=== PATIENT | male | born 1955 | race Caucasian/White ===

== ENCOUNTER 2018-05-13 06:31 | Day surgery (SDC) | payer MEDICARE, OTHER, SELFPAY ==
[2018-05-06 11:50] VITALS: BP 167/101; PULSE 55; RESP 16; TEMP 36.6; O2SAT 97; BMI 29.9
--- NOTE | 2018-05-06 12:29 | SDCEKG_ITS ---
Test Reason : Blood Pressure : / mmHG Vent. Rate : 052 BPM Atrial Rate : 052 BPM P-R Int : 210 ms QRS Dur : 112 ms QT Int : 432 ms P-R-T Axes : 043 -31 -08 degrees QTc Int : 401 ms Sinus bradycardia with 1st degree A-V block Left axis deviation Abnormal ECG Confirmed by VALENTINA KATZ, URSZULA ([id number]), photograph editor ADE BERNAL ([id number]) on 05/10/2018 10:57:42 AM Referred By: Elmo Bashir Confirmed By:URSZULA MONTGOMERY MD
[2018-05-06 12:47] LABS: Hematocrit 45.3 % (40-54); Hemoglobin 14.4 g/dl (13.0-16.5); Mean Corp Hgb Conc 31.8 g/gl (32-36); Mean Corpuscular Hgb 29.3 pg (27.0-32.0); Mean Corpuscular Volume 92.1 fL (80-94); Platelet Count 144 K/mm3 (150-450); RBC Distribution Width CV 14.7 % (11.6-14.6); RBC Distribution Width SD 49.6 fl (35.1-43.9); Red Blood Count 4.92 M/mm3 (4.6-6.2); White Blood Count 5.2 K/mm3 (4.4-11.0)
[2018-05-06 12:48] LABS: Scan Indicated on CBC? Y/N NO
[2018-05-06 13:11] LABS: Anion Gap 9 (5-15); BUN 57 mg/dL (7-18); BUN/Creat Ratio 31.7 RATIO (10-20); Calcium,Total 8.7 mg/dL (8.5-10.1); Chloride 106 mmol/L (98-107); EST Glomerular Filtration Rate 41 mL/min (>60); Est Glom Filt Rate - Afr Amer 49 mL/min (>60); Estimated Creatinine Clearance 42.81 ml/min; Glucose 136 mg/dL (74-106); Sodium Level 138 mmol/L (136-145)
[2018-05-06 13:22] LABS: Hemoglobin A1c 6.7 % (4.2-6.3)
--- NOTE | 2018-05-12 12:49 | HP.PCM_ITS ---
History and Physical Date of Admission: 05/13/18 63-year-old male who was found to have retention of urine and BPH obstruction and refluxing ureter. Last time he saw the practitioner who thought him how to do self intermittent catheterization and at this point is doing much better with emptiness bladder with a catheter. He is able to urinate but still can empty way past the catheter get several hundred ml out. Today were to do a cystoscopy. ALLERGIES: None MEDICATIONS: Atenolol-Chlorthalidone Atorvastatin Calcium Metformin Hcl PSH: None NON- PSH: Colonoscopy Pneumococcal Vaccine Admin PMH: Benign prostatic hyperplasia with lower urinary tract symptoms - 03/29/2018 Chronic kidney disease, unspecified - 03/29/2018 Other retention of urine - 03/29/2018 Frequency of micturition Nocturia Nodular prostate with lower urinary tract symptoms Other hydronephrosis Retention of urine, unspecified Unspecified urinary incontinence NON- PMH: Headache Hyperlipidemia, unspecified Personal history of diseases of the ms sys and conn tiss Secondary hypertension, unspecified Type 2 diabetes mellitus without complications Immunizations: None FAMILY HISTORY: None SOCIAL HISTORY: Marital Status: Preferred Language: Tanzanian; Ethnicity: Not Or ; Race: White Current Smoking Status: Patient does not smoke anymore. Has not smoked since 03/22/1998. Tobacco Use Assessment Completed: Used Tobacco in last 30 days? Smoking cessation counseling was provided. Does not use smokeless tobacco. Has never drank. Does not use drugs. Drinks 4+ caffeinated drinks per day. Has not had a blood transfusion. REVIEW OF SYSTEMS: Constitutional: Patient denies fever, chills, weight loss, and weight gain. Genitourinary: Patient denies frequent urination, urinary retention, get up at night to void, leakage of urine, painful urination, blood in the urine, frequent uti's, history of stones, difficulty starting stream, weak stream/scanty, and bedwetting. VITAL SIGNS: 04/11/2018 11:05 AM Weight 204 lb / 92.53 kg Height 70 in / 177.8 cm BP 134/72 mmHg BMI 29.3 kg/m? - BMI Counseling was provided. PHYSICAL EXAMINATION: Anus and Perineum: Mild external hemorrhoids. No anal stenosis. No rectal fissure, no anal fissure. No edema, no dimple, no perineal tenderness, no anal tenderness. Scrotum: No lesions. No edema. No cysts. No warts. Epididymides: Right: no spermatocele, no masses, no cysts, no tenderness, no induration, no enlargement. Left: no spermatocele, no masses, no cysts, no tenderness, no induration, no enlargement. Testes: No tenderness, no swelling, no enlargement left testes. No tenderness, no swelling, no enlargement right testes. Normal location left testes. Normal location right testes. No mass, no cyst, no varicocele, no hydrocele left testes. No mass, no cyst, no varicocele, no hydrocele right testes. Urethral Meatus: Normal size. No lesion, no wart, no discharge, no polyp. Normal location. Penis: Circumcised, no warts, no cracks. No dorsal Peyronie's plaques, no left corporal Peyronie's plaques, no right corporal Peyronie's plaques, no scarring, no warts. No balanitis, no meatal stenosis. Prostate: Prostate about 60 grams. Prostate left lobe larger. Left lobe normal consistency, right lobe normal consistency. No prostate nodule. Left lobe no tenderness, right lobe no tenderness. Seminal Vesicles: Nonpalpable. Sphincter Tone: Normal sphincter. No rectal tenderness. No rectal mass. MULTI-SYSTEM PHYSICAL EXAMINATION: Constitutional: Well-nourished. No physical deformities. Normally developed. Good grooming. Respiratory: No labored breathing, no use of accessory muscles. Lymphatic: No enlargement of neck, axillae, groin. Neurologic / Psychiatric: Oriented to time, oriented to place, oriented to person. No depression, no anxiety, no agitation. Gastrointestinal: Obese abdomen. No mass, no tenderness, no rigidity. Eyes: Normal conjunctivae. Normal eyelids. Musculoskeletal: Normal gait PAST DATA REVIEWED: Source Of History: Patient Records Review: Previous Patient Records Urine Test Review: Urinalysis X-Ray Review: C.T. Abdomen/Pelvis: Reviewed Films. Reviewed Report. PROCEDURES: Flexible Cystoscopy - 18755 Risks, benefits, and some of the potential complications of the procedure were discussed at length with the patient including infection, bleeding, voiding discomfort, urinary retention, fever, chills, sepsis, and others. All questions were answered. Informed consent was obtained. Antibiotic prophylaxis was given. Sterile technique and intraurethral analgesia were used. Meatus: Normal size. Normal location. Normal condition. Urethra: No strictures. External Sphincter: Normal. Verumontanum: Normal. Prostate: Obstructing. Moderate hyperplasia. Bladder Neck: Non-obstructing. Ureteral Orifices: Normal location. Normal size. Normal shape. Effluxed clear u rine. Bladder: Moderate trabeculation. Normal mucosa. No stones. Urinalysis - [address] Dipstick Dipstick Cont'd Specimen: Voided Blood: Neg Appearance: Clear pH: 5.0 Color: Yellow Protein: Neg Glucose: Normal Urobilinogen: Neg Bilirubin: Neg Nitrites: Neg Ketones: Neg Leukocyte Esterase: Neg ASSESSMENT: ICD-10 Details 1 : Benign prostatic hyperplasia with lower urinary tract symptoms - N40.1 2 Chronic kidney disease, unspecified - N18.9 3 Other hydronephrosis - N13.39 4 Other retention of urine - R33.8 PLAN: Document Letter(s): Created for Patient: Clinical Summary Notes: 63-year-old male on cystoscopy found to have BPH obstruction not a very large prostate but not enough to cause obstruction, recommend he continue with self intermittent catheterization, will set him up for surgery for a transurethral resection of prostate hopefully this will be enough to open up the channel and alleviate obstruction so he does not need to catheterize afterwards but also expanded the patient as possible he may need to catheterize himself a daily basis even with surgery on his prostate. Will set him up for TURP
[2018-05-13] VITALS (11 sets, daily range): BP systolic 103–137; BP diastolic 60–87; PULSE 57–84; RESP 16–18; TEMP 36.4–37.1; O2SAT 92–98; BMI 29.9
--- NOTE | 2018-05-13 | IMM_PTH ---
PATIENT: GEORGIE LYNN LOC: [facility] [place] U#:[id number] AGE/SX: 63/M ROOM: RE05/13/[address]: Dr. Elmo Bashir MD : 1955 BED: DIS: 05/14/2018 SPEC #: [id number] RECD: 05/16/18 14:21 STATUS: ZOYA REQ #: [id number] YVETTE: 05/13/18 00:[address]: Elmo Bashir DEPT: IMMUNOHISTOCHEMISTRY RECD BY: Dora Mendes ENTERED: 05/16/18 14:22 SP TYPE: IMMUNO OTHR DR: Dr. Luis Daniel Alamo, DO Tissues: Prostate, NOS Procedures: P40 (add) 34BE12 (initial) PHYSICIAN & INSTITUTION [place] [id number] SPECIMEN INFORMATION: Tissue Source: Prostate chips Clinical Info: BPH, lower urinary tract symptoms Specimen Number: [id number] #3 CPT code: 30642, 19928 METHODOLOGY: Deparaffinized sections of prefer/formalin-fixed tissue or PAP/DQ stained slides are incubated with monoclonal/polyclonal antibodies/oligonucleotide probes. Localization is made via biotin free immunoperoxidase method. Appropriate controls are performed and reacted as expected. Results on target cell population are indicated in the following table: RESULTS: ANTIBODY / CLONE RESULT Block 3 P40 (BC28) negative 34BE12 (34BE12) negative These tests were developed and their performance characteristics determined by [facility]. They may not have been cleared or approved by the U.S. Food and Drug Administration. The FDA has determined that such clearance or approval is not necessary. INTERPRETATION: Prostate chips, TUR: Adenocarcinoma. NAVA:arnol 05/17/18
[2018-05-13] MEDS: Cefazolin 2 GM in 0.9% Normal Saline 100 ML IV (07:00)
[2018-05-13 07:10] LABS: Bedside Glucose 138 mg/dL (70-110)
--- NOTE | 2018-05-13 08:22 | DCINST_ITS ---
Discharge Diet: Light diet - advance as tolerated Discharge Activity: Return to Normal Activity, May not drive while taking narcotic pain medications., May Shower Call your doctor if your incision/area has: Continuous Slow Oozing, Sudden Increased Bleeding, Increased Pain/ Swelling, Increased Redness, Foul Smelling Discharge, Swelling at the incision site Call your doctor if you observe: Fever of 101 or Higher, Inability to urinate, Inability to have a bowel movement Suture Line Care: Avoid Pulling/Pushing, Avoid Pinching/Bending Instructions: Transurethral Resection of the Prostate (TURP): Home Recovery Allergies/Adverse Reactions: Allergies morphine Adverse Reaction (Verified 05/13/18 06:58) confusion Medications to take at Discharge Atenolol/Chlorthalidone [Atenolol-Chlorthalidone 50-25] 1 each PO DAILY 05/06/18 Ibuprofen [Motrin] 800 mg PO TID PRN 05/06/18 Acetaminophen [Tylenol Extra Strength] 500 mg PO Q4H PRN PRN 7 Days #20 tablet 05/13/18 Ciprofloxacin [Cipro] 500 mg PO BID #14 tablet 05/13/18 Ibuprofen 600 mg PO Q6H PRN PRN #20 tablet 05/13/18 The following prescriptions were given: Acetaminophen [Tylenol Extra Strength] 500 mg PO Q4H PRN PRN 7 Days #20 tablet PRN Reason: Pain Ibuprofen 600 mg PO Q6H PRN PRN #20 tablet PRN Reason: Pain Ciprofloxacin [Cipro] 500 mg PO BID #14 tablet Primary Care Physician: Luis Daniel Alamo DO [Primary Care Provider] - Test Results: Test results from this visit will be discussed in further detail at your follow- up appointment, if applicable. Please Follow Up With: Elmo Bashir MD When: in 2 weeks, please call to make an appointment. Proposed Discharge Date: 05/14/18
--- NOTE | 2018-05-13 08:50 | PROS_PTH ---
PATIENT: GEORGIE LYNN LOC: [facility] [place] U#:[id number] AGE/SX: 63/M ROOM: RE05/13/[address]: Dr. Elmo Bashir MD : 1955 BED: DIS: 05/14/2018 SPEC #: [id number] RECD: 05/13/18 13:59 STATUS: ZOYA REFrancisco #: [id number] YVETTE: 05/13/18 08:[address]: Elmo Bashir DEPT: SURGICAL PATHOLOGY RECD BY: Cirilo Trinh ENTERED: 05/13/18 14:47 SP TYPE: TURP OTHR DR: Dr. Luis Daniel Alamo, DO Tissues: Prostate, NOS Procedures: Surgery Specimen Level V HEADER OPERATION: Cysto, TUR, prostate, Olympus PRE-OP DIAGNOSIS: Benign prostatic hypertrophy with lower urinary tract symptoms TISSUE SUBMITTED: Prostate chips MICROSCOPIC DIAGNOSIS Prostate chips, TUR: Prostatic adenocarcinoma. See cancer summary below. PROSTATE CANCER (TUR) SUMMARY: Procedure - transurethral prostatic resection Specimen weight - 16 gm Histologic type - adenocarcinoma (acinar, not otherwise specified) Histologic grade (Antione Pattern): Primary (predominant) pattern - grade 3 Secondary (worst remaining) pattern - grade 3 Total Antione score - 6 Tumor Quantitation (TUR specimens): Proportion (%) of prostatic tissue involved by tumor - ~15% Number of positive chips - ~22 Total number of chips - ~119 Periprostatic fat invasion - not applicable Seminal vesicle invasion - not applicable Lymph-Vascular invasion - not identified Perineural invasion - not identified Additional pathologic findings - benign prostatic hyperplasia, glandular and stromal type. - Focal chronic inflammation. - Multiple prostatic stones (gross only). The above summary is in compliance with [employer] [place] [employer] (CAP) Cancer Protocols Checklist and [place] Joint Committee on Cancer (AJCC), Staging Manual, 8th Ed. SJ:rg 05/16/18 COMMENT Immunohistochemistry ([id number]) supports the above diagnosis. MICROSCOPIC DESCRIPTION Slides are reviewed. GROSS DESCRIPTION Received is one container labeled with the patient's name and designated prostate tissue. The specimen consists of multiple irregular fragments of pink-clinton, rubbery, soft tissue that in aggregate weigh 16 gm and measure in aggregate 5 x 5 x 2 cm. A few fragments of stones are also noted. The entire specimen is submitted in 11 cassettes. The stones are for gross identification only. / SJ:rg 05/13/18 TC:0 CPT: 17213
--- NOTE | 2018-05-13 09:28 | OP.PCM_ITS ---
Report of Operation Date of Procedure: 05/13/18 Pre-Operative Diagnosis: BPH with obstruction distended and atonic bladder Post-Operative Diagnosis: Same Surgery/Procedure Performed:: Transurethral resection of the prostate Description of Surgical Findings:: 63-year-old male who was found to have an obstructive but small prostate and a distended bladder and atonic bladder he is urinating some but also using the catheter empty his bladder today we will proceed with a transurethral resection of the prostate to alleviate the obstruction is possible he may be able to alleviate his bladder without a catheter after the surgery but also possible he may need to still use a catheter long-term this is explained to the patient is agreeable with proceeding with the surgery with the benefits of been able to urinate on his own without needing a catheter but also the risk of bleeding infection risk of anesthesia and risk of failure of the surgery to alleviate his obstruction. 63-year-old male taken back to the operating room the smooth induction of general anesthesia he was placed in dorsolithotomy position, penis and testicles are prepped and draped in usual sterile fashion, I went to the bladder with a 24 [place] noncontinuous flow Olympus resectoscope using the bipolar resection. Inspected the bladder and the prostate the bladder was fairly distended trabeculated atonic looking bladder, large floppy bag. The prostate was small and obstructive with a lot of BPH tissue had bilateral hypertrophy is protruding into the bladder I started by resecting at the 6 o'clock position work my way up to the 12 o'clock position in the right side resected on the right tissue in the right lobe of the prostate and then resect the left lobe of the prostate and then worked my way back to the verumontanum this was identified not injured and then I resected all the apical tissue very carefully had a fair amount of tissue resected as a wide open channel from the verumontanum into the bladder neck had a good flow test at the end and then Ellik out all the chips obtain hemostasis and then put a catheter into the bladder on continuous bladder irrigation appear to be a complete resection. The sphincter was intact at the end of the resection of pullback behind the sphincter could still see coapted together and had good control of bleeding put a catheter in with three-way irrigation patient was taken back to PACU good condition. Type of Anesthesia:: General Drains: 3 way 22fr - Admit VTE Documentation VTE Present on Admission: No VTE Mechan Device Prophylaxis: SCD's
[2018-05-13 09:46] LABS: Bedside Glucose 142 mg/dL (70-110)
[2018-05-13] MEDS: 0.9% Normal Saline 1,000 ML 125 ML IV ×2 (11:18→19:23)
[2018-05-13] MEDS: Docusate Sodium 100 MG Capsule PO ×2 (11:41→21:31)
[2018-05-13] MEDS: Pantoprazole Sodium 40 MG Tablet PO (11:41)
[2018-05-13] MEDS: Ciprofloxacin 500 MG Tablet PO ×2 (11:41→21:31)
[2018-05-13] MEDS: Ibuprofen 600 MG Tablet PO (13:14)
[2018-05-13] MEDS: oxyCODONE 5 MG Tablet PO ×2 (13:14→21:31)
[2018-05-13 16:30] LABS: Bedside Glucose 218 mg/dL (70-110)
[2018-05-13] MEDS: Zolpidem Tartrate 5 MG Tablet PO (23:57)
[2018-05-14 02:41] VITALS: BP 118/68; PULSE 72; RESP 18; TEMP 36.6; O2SAT 95
[2018-05-14] MEDS: 0.9% Normal Saline 1,000 ML 125 ML IV (02:44)
[2018-05-14 07:17] LABS: Hematocrit 38.9 % (40-54); Hemoglobin 12.4 g/dl (13.0-16.5); Mean Corp Hgb Conc 31.9 g/gl (32-36); Mean Corpuscular Hgb 29.7 pg (27.0-32.0); Mean Corpuscular Volume 93.3 fL (80-94); Mean Platelet Vol. 10.8 fl (6.2-12.0); Platelet Count 124 K/mm3 (150-450); RBC Distribution Width CV 14.4 % (11.6-14.6); RBC Distribution Width SD 47.2 fl (35.1-43.9); Red Blood Count 4.17 M/mm3 (4.6-6.2); White Blood Count 7.3 K/mm3 (4.4-11.0)
[2018-05-14 07:20] LABS: Scan Indicated on CBC? Y/N NO
[2018-05-14 07:46] LABS: Bedside Glucose 118 mg/dL (70-110)
[2018-05-14 07:48] LABS: Anion Gap 11 (5-15); BUN 35 mg/dL (7-18); BUN/Creat Ratio 22.7 RATIO (10-20); Calcium,Total 7.6 mg/dL (8.5-10.1); Chloride 110 mmol/L (98-107); Creatinine, Serum 1.54 mg/dL (0.70-1.30); EST Glomerular Filtration Rate 49 mL/min (>60); Est Glom Filt Rate - Afr Amer 59 mL/min (>60); Estimated Creatinine Clearance 50.04 ml/min; Glucose 106 mg/dL (74-106); Potassium 3.4 mmol/L (3.5-5.1); Sodium Level 142 mmol/L (136-145)
[2018-05-14 08:45] VITALS: BP 126/69; PULSE 65; RESP 16; TEMP 36.6; O2SAT 95
[2018-05-14] MEDS: Docusate Sodium 100 MG Capsule PO (08:53)
[2018-05-14] MEDS: Pantoprazole Sodium 40 MG Tablet PO (08:54)
[2018-05-14] MEDS: Ciprofloxacin 500 MG Tablet PO (08:54)
[2018-05-14] MEDS: oxyCODONE 5 MG Tablet PO (08:56)
--- NOTE | 2018-05-14 09:04 | PCM.PN.BLA ---
Progress Note 63-year-old male status post TURP the urine is nice and clear nurses will get the catheter out he is able to urinate and go home.
--- NOTE | 2018-05-14 10:29 | NURSING ---
PER PATIENT HE URINATED 275ML AND EMPTIED CONTAINER HIMSELF. I ASKED HIM TO PLEASE LET ME KNOW NEXT TIME SO I CAN SEE THE URINE PRIOR TO IT BEING DUMPED
== END 2018-05-14 11:23 | disposition home or self-care (01) ==
LOC: SDC 06:32 → AC 06:33 → MS3 08:54
PROVIDERS: Anesthesiology; Family Provider Family Medicine; PCP Family Medicine; Referring Provider Urology; Visit Provider Urology
PROC: (CPT 52630; principal; 2018-05-13 08:40)
DX: C61 Malignant neoplasm of prostate (principal); R33.8 Other retention of urine; N31.2 Flaccid neuropathic bladder, not elsewhere classified; E78.5 Hyperlipidemia, unspecified; I12.9 Hypertensive chronic kidney disease with stage 1 through stage 4 chronic kidney disease, or unspecified chronic kidney disease; E11.22 Type 2 diabetes mellitus with diabetic chronic kidney disease; N18.9 Chronic kidney disease, unspecified; Z87.891 Personal history of nicotine dependence; Z79.84 Long term (current) use of oral hypoglycemic drugs; Z79.899 Other long term (current) drug therapy; Z79.82 Long term (current) use of aspirin
CPT/HCPCS: 52630; 80048; 82962; 83036; 85027; 88305; 88307; 88341; 88342; 93005; J7030; J7120; J2405

== ENCOUNTER → 2018-08-31 | Outpatient (CLI) | payer MEDICARE, OTHER, SELFPAY ==
[2018-05-13 06:56] VITALS: BMI 29.9
[2018-08-31 14:38] LABS: PSA,Total- Diagnostic 1.14 ng/mL (0.0-4.0)
== END | disposition home or self-care (01) ==
LOC: MTLAB 12:28
PROVIDERS: Family Provider Family Medicine; PCP Family Medicine; Referring Provider Urology; Visit Provider Urology
DX: C61 Malignant neoplasm of prostate (principal)
CPT/HCPCS: 36415; 84153

== ENCOUNTER → 2019-03-06 16:40 | Outpatient (CLI) | payer MEDICARE, OTHER, SELFPAY ==
[2018-05-13 06:56] VITALS: BMI 29.9
[2019-03-06 17:54] LABS: PSA,Total- Diagnostic 0.77 ng/mL (0.0-4.0)
== END ==
PROVIDERS: Family Provider Family Medicine; PCP Family Medicine; Referring Provider Urology; Visit Provider Urology
DX: C61 Malignant neoplasm of prostate (principal)
CPT/HCPCS: 36415; 84153

== ENCOUNTER → 2019-09-04 10:20 | Outpatient (CLI) | payer MEDICARE, SELFPAY ==
[2018-05-13 06:56] VITALS: BMI 29.9
[2019-09-04 11:30] LABS: PSA,Total- Diagnostic 1.27 ng/mL (0.0-4.0)
== END ==
PROVIDERS: PCP Family Medicine; Referring Provider Urology; Visit Provider Urology
DX: C61 Malignant neoplasm of prostate (principal)
CPT/HCPCS: 36415; 84153

== ENCOUNTER 2020-03-30 16:14 | Emergency (ER) | payer MEDICARE, SELFPAY ==
[2018-05-13 06:56] VITALS: BMI 29.9
[2020-03-30 16:15] VITALS: BP 156/122; PULSE 77; RESP 16; TEMP 36.8; O2SAT 94; BMI 27.3
[2020-03-30] MEDS: 0.9% Normal Saline 1,000 ML 1000 ML IV (17:25)
[2020-03-30] MEDS: HYDROmorphone 1 MG/ML Syringe 0.5 MG IV (17:26)
[2020-03-30] MEDS: Ondansetron 4 MG/2 ML Vial IV (17:27)
[2020-03-30 17:30] LABS: Absolute Lymphocyte Count 0.83 X10^3/uL (0.83-4.51); Absolute Neutrophil Count 4.3 X10^3/uL (2.0-7.7); Basophil# 0.04 X10^3/uL; Basophil% 0.7 % (0-1); Eosinophil# 0.13 X10^3/uL; Eosinophils% 2.2 % (0-5); Hematocrit 48.4 % (40-54); Hemoglobin 15.8 g/dL (13.0-16.5); Lymphocyte # 0.83 X10^3/ul (4.0); Mean Corp Hgb Conc 32.6 g/dL (32-36); Mean Corpuscular Hgb 30.3 pg (27.0-32.0); Mean Corpuscular Volume 92.7 fL (80-94); Mean Platelet Vol. 10.1 fl (6.2-12.0); Monocyte% 10.1 % (0-10); NRBC Flagged by Analyzer 0 % (0-5); Neutrophil # 4.31 X10^3/uL (2.7-7.7); Neutrophil % 72.7 % (47-70); Platelet Count 184 K/mm3 (150-450); RBC Distribution Width CV 14.6 % (11.6-14.6); RBC Distribution Width SD 49.5 fl (35.1-43.9); Red Blood Count 5.22 M/mm3 (4.6-6.2); White Blood Count 5.9 K/mm3 (4.4-11.0)
--- NOTE | 2020-03-30 17:42 | CT_ITS ---
STUDY: CT BRAIN WITHOUT CONTRAST REASON FOR EXAM: Male, 65 years old. Headache for 3 days, shingles nosebleed RADIATION DOSAGE (If Supplied By Facility): CTDIvol = ( 44.99 ) mGy, DLP = ( 796.11 ) mGycm TECHNIQUE: Transaxial CT imaging of the brain was performed without administration of intravenous contrast material. Individualized dose optimization techniques were used for this CT. COMPARISON: No relevant priors. FINDINGS: There is no acute intracranial hemorrhage, mass effect, midline shift, extra parenchymal fluid collections or hydrocephalus. There is right occipital periventricular white matter hypodensity, likely chronic ischemic white matter change. 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 The skull is intact. CT/Brain/Head without Contrast IMPRESSION: 1. No acute findings. 2. Right occipital white matter and left cerebellar remote ischemia. Electronically Signed: Justino Wu, at 17:57 EST Tel , Service support ,
[2020-03-30 17:50] LABS: Anion Gap 8 (5-15); BUN 53 mg/dL (7-18); BUN/Creat Ratio 27.2 RATIO (10-20); Calcium,Total 8.9 mg/dL (8.5-10.1); Chloride 103 mmol/L (98-107); Creatinine, Serum 1.95 mg/dL (0.70-1.30); EST Glomerular Filtration Rate 37 mL/min (>60); Est Glom Filt Rate - Afr Amer 45 mL/min (>60); Estimated Creatinine Clearance 39.69 ml/min; Glucose 152 mg/dL (74-106); Potassium 4.1 mmol/L (3.5-5.1); Sodium Level 137 mmol/L (136-145)
[2020-03-30 18:13] VITALS: BP 151/82; PULSE 68; RESP 17; TEMP 36.9; O2SAT 95
--- NOTE | 2020-03-30 18:49 | ED.DCSUM_ITS ---
- ER Visit Summary Date of Service: 03/30/20 Chief Complaint: Headache and shingles History of Present Illness: The patient is a [address] Saad Alamo. He reports that he was diagnosed with shingles on March 19. He was placed on famciclovir for 1 week. States that he was on Neurontin for pain but quit this 2 days ago because he developed headaches. Patient reports that he has a headache, but when asked the location of this he points to his neck where his shingles are. He denies any pain to the back of his head, top of his head, or forehead. He describes it as a sharp pain is 10 on 10 at worst and 7-10 currently. Is worsened by nothing relieved by nothing. Patient reports that he has had nosebleeds that began 3 days ago. Is from the right side. Is happening a couple of times per day. It resolves with 2 Kleenex. Patient complains of chills and nausea. He denies any other complaints. Physical Examination: Vitals: Stable. Afebrile. General: Well-nourished and well-developed. Head: Normocephalic atraumatic. Neck: Supple, no lymphadenopathy. No JVD. Nontender. Cardiovascular: Regular rate and rhythm. No murmurs. Respiratory: No respiratory distress. Clear to auscultation bilaterally. Abdominal: Soft, nontender, nondistended, normal bowel sounds. No guarding, rebound, or peritoneal signs. Back: Nontender. Extremities: Nontender, no edema. Skin: Vesicular rash in a C3-C4 distribution on the left. There is no evidence of a bacterial infection. Neurologic: Alert and oriented ?3. Cranial nerves II through XII are intact. Normal strength and sensation. Psych: Normal affect. Test Results: CBC is remarkable segmented for 73, sats 14, monocytes 10. Chem-7 shows a glucose 152, BUN of 53, creatinine 1.95. Clinical Impression(s) from Imaging Studies Brain CT 03/30/20 17:42 IMPRESSION: 1. No acute findings. 2. Right occipital white matter and left cerebellar remote ischemia. Electronically Signed: Justino Wu, at 17:57 EST Tel , Service support , Emergency Department Course and Treatment: Initially when patient complained of shingles and a headache we discussed the possibility of a lumbar puncture. However, after further clarifying with the patient this is pain just in his skin. He does not feel like there is any pain that is inside his skull. The patient was given a dose of Zofran and half a milligram of Dilaudid IV. He was also given a dose of acyclovir IV. Treatment Plan: The patient was discussed with Dr. Oshea of infectious diseases. Given the fact that his rash is still vesicular and he is having new lesions pop up he will be placed on Valtrex 1 g 3 times daily for the next 7 days. He will not be placed on steroids. He will be given a prescription for Percocet for pain. Follow-up his primary care physician 1 week if not improving. Return to the emergency department for any worsening symptoms. Disposition: To home in improved and stable condition. Impression: 1. Herpes zoster C3/C4 distribution on the left. 2. Chronic renal insufficiency. This note was generated with [employer] dictation software. It may contain incorrect words, spelling, and punctuation that were not noted in review of the chart prior to signing ED Disposition - Plan for ED Patient: Instructions: ED Shingles (Herpes Zoster) Prescriptions: Docusate Sodium [Colace] 100 mg PO DAILY #20 capsule Oxycodone HCl/Acetaminophen [Percocet 5/325] 1 tablet PO Q6H PRN PRN 5 Days #20 tablet PRN Reason: Pain Score 6-10 Valacyclovir HCl [Valacyclovir] 1,000 mg PO TID #21 tablet Referrals: Saad Alamo MD [Primary Care Provider] - 1 Week if not improving
[2020-03-30 19:19] VITALS: BP 108/66; PULSE 82; RESP 20; O2SAT 94
== END 2020-03-30 19:21 | disposition home or self-care (01) ==
LOC: ED 16:42
PROVIDERS: Emergency Provider Emergency Medicine; PCP Family Medicine
DX: B02.9 Zoster without complications (principal); N18.9 Chronic kidney disease, unspecified
CPT/HCPCS: 70450; 80048; 85025; 96365; 96375; 99283; J7030; A4216; J2405

== ENCOUNTER → 2020-09-02 10:24 | Outpatient (CLI) | payer MEDICARE, SELFPAY ==
[2020-09-02 11:14] LABS: PSA,Total- Diagnostic 1.37 ng/mL (0.0-4.0)
== END ==
PROVIDERS: PCP Family Medicine; Referring Provider Urology; Visit Provider Urology
DX: C61 Malignant neoplasm of prostate (principal)
CPT/HCPCS: 36415; 84153

== ENCOUNTER → 2021-01-14 10:09 | Outpatient (CLI) | payer MEDICARE, SELFPAY | PROVIDERS: PCP Family Medicine; Referring Provider Anesthesiology Pain Medicine; Visit Provider Anesthesiology Pain Medicine | DX: F11.21 Opioid dependence, in remission (principal) ==

== ENCOUNTER 2021-04-17 10:13 | Observation (INO) | payer MEDICARE, SELFPAY ==
--- NOTE | 2021-03-13 13:10 | EKG12_ITS ---
Test Reason : PRE-OP Blood Pressure : / mmHG Vent. Rate : 072 BPM Atrial Rate : 072 BPM P-R Int : 192 ms QRS Dur : 110 ms QT Int : 398 ms P-R-T Axes : 054 -23 024 degrees QTc Int : 435 ms Normal sinus rhythm Normal ECG Confirmed by DAYANARA KATZ, YON ([id number]), editor managing newspaper MELISSA HULL ([id number]) on 03/17/2021 10:19:25 AM Referred By: Hal Pearson Confirmed By:YON NICHOLE MD
--- NOTE | 2021-03-13 13:18 | RAD_ITS ---
STUDY: X-RAY CHEST REASON FOR EXAM: Male, 65 years old. PREOP TECHNIQUE: PA and lateral views of the chest. COMPARISON: None. FINDINGS: The lungs are clear and expanded. There is no demonstrated pleural abnormality. Normal size heart. Normal mediastinum and jay. Normal visualized pulmonary arteries. Normal visualized aortic arch and descending thoracic aorta. Normal visualized thoracic spine. Normal visualized ribs, clavicles, and shoulders. There is no demonstrated abnormality of the visualized soft tissue structures of the upper abdomen. RAD/Chest PA and Lateral IMPRESSION: Normal x-ray examination of the chest. Electronically Signed: Bernard Zepeda MD at 10:25 EST Tel , Service support ,
[2021-03-13 15:07] LABS: Absolute Lymphocyte Count 1.45 X10^3/uL (0.83-4.51); Absolute Neutrophil Count 4.7 X10^3/uL (2.0-7.7); Basophil# 0.06 X10^3/uL; Basophil% 0.8 % (0-1); Eosinophil# 0.59 X10^3/uL; Eosinophils% 8.1 % (0-5); Hematocrit 43.2 % (40-54); Lymphocyte # 1.45 X10^3/ul (0.83-4.51); Lymphocyte % 19.9 % (19-41); Mean Corp Hgb Conc 32.4 g/dL (32-36); Mean Corpuscular Volume 95.8 fL (80-94); Mean Platelet Vol. 9.9 fl (6.2-12.0); Monocyte# 0.49 X10^3/uL; Monocyte% 6.7 % (0-10); NRBC Flagged by Analyzer 0 % (0-5); Neutrophil # 4.66 X10^3/uL (2.7-7.7); Neutrophil % 64.2 % (47-70); Platelet Count 220 K/mm3 (150-450); RBC Distribution Width CV 12.6 % (11.6-14.6); RBC Distribution Width SD 45.1 fl (35.1-43.9); Red Blood Count 4.51 M/mm3 (4.6-6.2); White Blood Count 7.3 K/mm3 (4.4-11.0)
[2021-03-13 15:18] LABS: Prothrombin Time (Protime)PT. 12.9 SECONDS (11.7-14.9)
[2021-03-13 15:19] LABS: Partial Thromboplast Time 28.8 Seconds (24.1-36.2)
[2021-03-13 15:32] LABS: Anion Gap 7 (5-15); BUN 46 mg/dL (7-18); BUN/Creat Ratio 25.1 RATIO (10-20); Calcium,Total 9.3 mg/dL (8.5-10.1); Chloride 106 mmol/L (98-107); Creatinine, Serum 1.83 mg/dL (0.70-1.30); EST Glomerular Filtration Rate 39 mL/min (>60); Est Glom Filt Rate - Afr Amer 48 mL/min (>60); Glucose 204 mg/dL (74-106); Potassium 4.3 mmol/L (3.5-5.1); Sodium Level 139 mmol/L (136-145)
[2021-03-13 15:46] LABS: Hemoglobin A1c 7.4 % (3.8-5.6)
[2021-04-17] VITALS (13 sets, daily range): BP systolic 111–129; BP diastolic 67–94; PULSE 67–84; RESP 16–18; TEMP 36.3–36.8; O2SAT 93–98; BMI 31.8
[2021-04-17] MEDS: Lactated Ringers 1,000 ML 15 ML IV ×3 (09:23→14:11)
[2021-04-17 09:36] LABS: Bedside Glucose 171 mg/dL (70-110)
--- NOTE | 2021-04-17 10:16 | PCM.OPRPT ---
Problems Associated Problem List Diagnoses (1) Lumbar stenosis: Report of Operation Date of Procedure: 04/17/21 Pre-Operative Diagnosis: 1. Lumbar stenosis, spondylosis 2. Chronic back pain Post-Operative Diagnosis: 1. Lumbar stenosis, spondylosis 2. Chronic back pain Surgery/Procedure Performed:: 1. T9-10 partial bilateral laminectomies 2. Dorsal column stimulator paddle lead placement 3. Subcutaneous placement of dorsal column stimulator generator 4. 1 hour of complex programming postoperatively Description of Surgical Findings:: The patient is a 66-year-old male with intractable back and leg pain. He has failed to respond to nonoperative treatment including medications, physical therapy and injections. He opted for operative intervention understanding the risks to include but not limited to infection, bleeding, damage to nerves arteries and veins, possibility of spinal fluid leak, hardware failure, continued pain, need for further surgery, deep vein thrombosis, pulmonary embolism, risk of stroke, heart attack or . The patient was identified in the preoperative holding area. There he received preoperative IV antibiotics Ancef and was then transferred to the operative suite. Once in the operative suite after general endotracheal anesthesia was established the patient was transferred to the [place] operating table in the prone position. All bony prominences were padded accordingly. The thoracolumbar spine was prepped and draped in a standard surgical fashion. Incision was made over the thoracolumbar spine centered over the T9-10 interlaminar space and taken down to the thoracic fascia. The fascia was then divided and subperiosteal dissection was taken down to the level of the bilateral T9-10 facet joints. Deep retractors were placed. Partial bilateral laminectomies were performed at the T9-10 interspace. At this point a paddle lead was placed spanning from the level of T8 inferiorly. It was then anchored to the fascia using standard anchors with silk suture. A 3 cm transverse incision was made over the right sacroiliac region for the battery/generator. Wires for the stimulator were then passed subcutaneously with a passing device to the battery pocket and connected to a new generator/battery. Both incisions were then thoroughly irrigated. The battery was placed inside of the pocket incision. Both incisions were then closed with #1 Vicryl for fascia, 2-0 Vicryl for subcutaneous and 2-0 nylon for skin. Sterile dressings were applied with 4 x 4's ABD and tape. Sponge instrument needle counts were correct at the end of the case. Neuro monitoring was maintained at baseline during the entire duration of the case. The patient was extubated and taken to the PACU without incident. Then 1 hour was spent with complex programming and the patient recovered. Surgeon: Hal Pearson Type of Anesthesia: General Grafts/Implants Used: [employer] Complications None Admit VTE Documentation VTE Present on Admission: No
--- NOTE | 2021-04-17 10:17 | PCM.PN.ORT ---
Subjective Subjective The patient was seen and examined postoperatively in the PACU. He is resting comfortably. His only complaint is some pain in the left costal region which is currently being worked up by anesthesia. He has no complaints including numbness tingling or weakness Objective Data Objective Data Vital Signs: Vital Signs Temp Pulse Resp BP Pulse Ox 98.1 F 68 16 123/83 H 98 04/17/21 09:16 04/17/21 09:16 04/17/21 09:16 04/17/21 09:16 04/17/21 09:16 Oxygen Delivery Method Room Air Weight: 209 lb 7.026 oz Body Mass Index (BMI) 31.8 Lab / Micro Data Result Diagrams: 03/13/21 13:04 03/13/21 13:04 Labs: Laboratory Results - last 24 hr 04/17/21 09:09: POC Glucose 171 H Physical Exam Const alert, oriented x3 and no apparent distress General Appearance: cooperative and comfortable HEENT head/scalp atraumatic Eyes EOMs intact bilaterally and conjunctivae normal Neck full ROM General: normal visual inspection Chest inspection of chest normal Resp normal respiratory effort and normal air movement Cardio regular rate, regular rhythm and peripheral pulses 2+ throughout Peripheral Pulses: pulses 2+ throughout GI soft to palpation, non-tender and non-distended Back/Spine Back/Spine Narrative: Dressings clean dry and intact Cervical Spine: cervical ROM normal Thoracic Spine / Upper Back: normal to inspection Lumbar Spine / Lower Back: normal to inspection Extremity normal to inspection, full ROM, normal capillary refill, no clubbing, cyanosis or edema and no calf tenderness Peripheral Pulses: Yes pulses 2+ throughout Skin no rashes or lesions noted General Skin Exam: no breakdown Neuro oriented x3, CN's II-XII intact bilaterally, moves all extremities, no focal motor deficits, no sensory deficits noted and deep tendon reflexes 2+ bilaterally Motor Exam: strength 5/5 throughout and muscle tone normal throughout Assessment & Plan Assessment/Plan (1) Lumbar stenosis: PLAN: Okay to admit to floor See orders Discharge planning, likely home tomorrow
--- NOTE | 2021-04-17 10:17 | DS.PCM_ITS ---
Providers Date of Admission: 04/17/21 Primary Care Physician: Dr. Saad Alamo MD Reason For Visit: LAMINECTOMY THORACIC Medications at Discharge Home Medications atenolol-chlorthalidone 1 ea PO DAILY 05/06/18 metformin 500 mg PO BID 03/13/21 oxycodone 5 mg PO BID PRN 03/13/21 oxycodone 5 mg PO Q6H 7 Days #28 tablet 04/17/21 Hospital Course Operations - (T9-10 laminectomy, implantation of permanent spinal cord stimulator lead and generator) Summary of Care Provided Minutes Spent on Discharge: 15 Hospital Course: The patient is a 66-year-old male who underwent implantation of a permanent spinal cord stimulator on 04/17/2021. He was subsequently admitted. The hospitalist was consulted for medical management. He progressed well. His pain was well controlled and he was mobilizing well. No significant medical issues were reported. He was subsequently discharged home on 04/18/2021 to follow-up with Dr. Pearson in 3 weeks. Physical Exam Narrative seen and examined. mobilizing independently. only complaint is LUQ discomfort. no back pain. no paresthesias or weakness. no nausea, vomiting, fever, chills. Const alert, oriented x3 and no apparent distress General Appearance: cooperative and comfortable HEENT head/scalp atraumatic Eyes EOMs intact bilaterally and conjunctivae normal Neck full ROM General: normal visual inspection Chest inspection of chest normal Resp normal respiratory effort and normal air movement Cardio regular rate and regular rhythm Peripheral Pulses: pulses 2+ throughout GI soft to palpation, non-tender and non-distended Back/Spine Back/Spine Narrative: Dressings clean dry and intact Cervical Spine: cervical ROM normal Thoracic Spine / Upper Back: normal to inspection Lumbar Spine / Lower Back: normal to inspection Extremity normal to inspection, full ROM, normal capillary refill, no clubbing, cyanosis or edema and no calf tenderness Peripheral Pulses: Yes pulses 2+ throughout Skin no rashes or lesions noted General Skin Exam: no breakdown Neuro oriented x3, CN's II-XII intact bilaterally, moves all extremities, no focal motor deficits, no sensory deficits noted and deep tendon reflexes 2+ bilaterally Motor Exam: strength 5/5 throughout and muscle tone normal throughout Weight / BMI Weight Weight: 209 lb 7.026 oz Body Mass Index (BMI) 31.8 ABG / Lab / Microbiology Data Result Diagrams: 04/18/21 06:00 12/23/21 13:04 Laboratory: Laboratory Results - last 24 hr 04/17/21 09:09: POC Glucose 171 H D/C Instructions Discharge Diet: No restrictions Discharge Activity: - (See attached discharge instructions) Lifting Restricted to (Lbs): 5 Call your doctor if your incision/area has: Continuous Slow Oozing, Sudden Increased Bleeding, Increased Pain/ Swelling, Increased Redness, Foul Smelling Discharge and Swelling at the incision site Call your doctor if you observe: Fever of 101 or Higher, Coldness, Increased Pain, Numbness or Tingling, Change in Color, Inability to urinate, Inability to have a bowel movement, Using more than 1 pad per hour, Shortness of breath, Dizziness, Fainting spells, Swelling in the ankles, Chest pain, Prolonged hiccupping, Increased palpitations (irregular heartbeat), Calf discomfort and Uncontrolled pain Change Dressing in: Daily Cleanse incision/area with: Do not get Incision Wet and Keep Dressing Clean & Dry Additional Dressing/Incision Instructions: Daily dry dressing changes with iodine to incision Please Follow Up With: Hal Pearson DO When: 3 weeks Meaningful Use Info Meaningful Use Diagnoses (Choose all that apply): None applicable Discharge Plan Admission Admit Date/Time: 04/17/21 10:13 Attending Provider: Hal Pearson Primary Care Provider: Saad Alamo Consulting Providers: Silke Snider Instructions Additional Instructions / Restrictions: 1. During your procedure, you received sedation through your IV. Please follow these instructions for the next 24 hours: Do not drive a motor vehicle, do not d rink any alcoholic beverages, and do not sign any legal documents or make personal or business decisions. A responsible adult should stay with you at least 6 hours after the procedure. 2. Keep your surgical site/incision clean and the dressing dry and intact. You may sponge bathe, but no showering or sitting in a bathtub during your trial or for one week after the permanent implant. You may use an ice pack at the surgical site to reduce any swelling or discomfort. 3. Monitor the incision site for any signs or symptoms of infection. Watch for redness, excessive swelling or drainage, or continued pain at the incision site after 3 days. Contact your physician immediately for a fever, chills or a temperature of 101.5? F or greater. 4. Take your medication exactly as prescribed by your physician. Do not attempt to wean yourself off any of your medications even though your pain is improving. This process needs to be carefully monitored by your doctor. Take any antibiotics prescribed exactly as directed and until they are gone. 5. Avoid stretching, bending, pulling, twisting or any sudden movements. Do not bend or twist at the waist. Do not raise your arms above your head; however, you may brush your hair or scratch your head, but nothing higher than that. Any movements higher than that could cause your electrode wires to move from their current position. No not lie on your stomach. Do not bend at the waist to put your shoes on; you must lift your legs up to do this. 6. No lifting greater than 5 pounds. A gallon of milk weighs more than 5 pounds, so you may not lift this. Try to be careful. Any falls could dislodge the leads. 7. Do not operate a motor vehicle, equipment or a power tool while your stimulator is on. If you need to use any equipment, you must turn your stimulator off first. As a passenger in a motor vehicle, you may use your stimulator. 8. Do not have any manipulation done by a chiropractor or any other physician without first consulting with the physician who placed your spinal cord stimulator. 9. Without movement, you may note changes in the intensity of the stimulator. For example, you may notice a different stimulation when you are standing than when you are sitting or lying down. This is normal the first few weeks following the implant and will stabilize over time. 10. Please contact our office if you are even scheduled for a CT scan or an MRI. 11. Please call us if you have any questions, problems or concerns. Follow-up with Dr. Pearson in 3 weeks call for appointment Discharge Orders/Prescriptions Prescriptions: New oxycodone 5 mg tablet 5 mg PO Q6H 7 Days Qty: 28 RF: 0 Continued atenolol-chlorthalidone 1 EACH tablet 1 ea PO DAILY RF: 0 metformin 500 mg Tablet 500 mg PO BID RF: 0 oxycodone 5 mg Capsule 5 mg PO BID PRN (Reason: Pain) RF: 0 Other Ambulatory Orders: 12 Lead EKG (Routine) Timeframe: [id number] Location: None Selected Ordered By: Dr. Hal Pearson Referrals / Follow Up: Hal Pearson DO [STAFF PHYSICIAN] - Saad Alamo MD [Primary Care Provider] -
--- NOTE | 2021-04-17 10:25 | RAD_ITS ---
STUDY: X-RAY - THORACIC SPINE REASON FOR EXAM: Male, 66 years old. T9-T10 LAMINECTOMY, PERMANENT SPINAL CORD STIMULATOR IMPLANTATION TECHNIQUE: 5 intraoperative view(s) of the thoracic spine were obtained. COMPARISON: None. FINDINGS: Intraoperative imaging provided for T9/T10 laminectomy. RAD/Thoracic Spine 2 Views IMPRESSION: Intraoperative imaging provided for T9/T10 laminectomy. Electronically Signed: Jung Vargas MD at 10:57 EST ,
[2021-04-17] MEDS: THROMBIN (RECOMBINANT) 20,000 UNIT VIAL 20000 UNIT TOPICAL (11:00)
[2021-04-17] MEDS: Cefazolin 2 GM in 0.9% Normal Saline 100 ML IV (11:11)
[2021-04-17] MEDS: Bupivacaine 0.25% 30 ML Vial (12:40)
[2021-04-17 13:20] LABS: Bedside Glucose 172 mg/dL (70-110)
--- NOTE | 2021-04-17 14:06 | EKG12_ITS ---
Test Reason : POSTOP Blood Pressure : / mmHG Vent. Rate : 069 BPM Atrial Rate : 069 BPM P-R Int : 174 ms QRS Dur : 098 ms QT Int : 400 ms P-R-T Axes : 040 -10 007 degrees QTc Int : 428 ms Normal sinus rhythm Normal ECG When compared with ECG of 13-MAR-2021 13:15, No significant change was found Confirmed by VALENTINA KATZ, URSZULA ([id number]), manuscript editor MELISSA HULL ([id number]) on 04/22/2021 8:51:51 AM Referred By: Hal Pearson Confirmed By:URSZULA MONTGOMERY MD
[2021-04-17] MEDS: Acetaminophen 500 MG Tablet 1000 MG PO ×2 (15:08→22:22)
[2021-04-17] MEDS: Lactated Ringers 1,000 ML 100 ML IV (15:09)
[2021-04-17] MEDS: oxyCODONE 5 MG Tablet PO ×2 (15:14→20:20)
--- NOTE | 2021-04-17 15:48 | PN.HOSP_ITS ---
Documented by User: Marisel Holbrook NP, SENIOR TECHNICAL RECRUITER-C 04/17/21 15:58 Subjective Subjective Patient seen and examined. Hospitalist services consulted for medical management. Patient underwent T9-T10 partial bilateral laminectomies. Currently reporting 8 out of 10 postoperative pain. He reports a history of type 2 diabetes mellitus, hypertension, BPH and chronic back pain. Objective Data Objective Data Vital Signs: Vital Signs Temp Pulse Resp BP Pulse Ox 97.8 F 71 16 120/83 H 93 04/17/21 14:55 04/17/21 14:55 04/17/21 14:55 04/17/21 14:55 04/17/21 14:55 Oxygen Delivery Method Room Air Weight: 209 lb 7.026 oz Body Mass Index (BMI) 31.8 Intake & Output: Intake and Output for Last 24 Hours 04/15/21 04/16/21 04/17/21 23:59 23:59 23:59 Intake Total 2125 Balance 2125 Lab / Micro Data Result Diagrams: 03/13/21 13:04 03/13/21 13:04 Labs: Laboratory Results - last 24 hr 04/17/21 09:09: POC Glucose 171 H 04/17/21 13:14: POC Glucose 172 H Physical Exam Const alert, oriented x3 and no apparent distress Orientation / Consciousness: awake, oriented to person, oriented to place and oriented to time HEENT normocephalic and moist oral mucous membranes Eyes PERRL, EOMs intact bilaterally and conjunctivae normal Neck no lymphadenopathy Resp normal respiratory effort and clear to auscultation bilaterally Cardio regular rate, regular rhythm and no murmurs Peripheral Pulses: pulses 2+ throughout GI normal to inspection, nondistended, normoactive bowel sounds, non-tender and non-distended Extremity normal to inspection Skin no rashes or lesions noted Skin Narrative: Postoperative sites intact. Lesions: no lesions Rashes: no rashes Trauma: no lacerations or abrasions Neuro CN's II-XII intact bilaterally, no focal motor deficits, no sensory deficits noted and deep tendon reflexes 2+ bilaterally Psych mental status grossly normal and affect normal Assessment & Plan Assessment/Plan (1) Lumbar stenosis: PLAN: 1. Lumbar stenosis/chronic back pain-status post T9-T10 partial bilateral laminectomies and placement of dorsal column stimulator generator. Management per surgery. PT ordered. As needed pain regimen. 2. Type 2 diabetes mellitus-on Metformin. Recent hemoglobin A1c 7.4%. We will begin Accu-Cheks with sliding scale insulin during admission. 3. Hypertension-patient reports his blood pressure has significantly fluctuated as outpatient which he is feels is secondary to pain. Continue home atenolol/chlorthalidone regimen. Currently stable. As needed hydralazine. 4. BPH-status post TURP. DVT prophylaxis-SCDs This patient was seen by Marisel Holbrook NP-C under the supervision of Dr. Snider. Documented by User: Dr. Silke Snider DO 04/17/21 16:40 Subjective Subjective This patient was seen in conjunction with Marisel Holbrook NP. The following represents my independent history and physical examination. Please see below for addendum the above. Mr. Colon is a 66-year-old male with a past medical history of hypertension, BPH status post TURP, and DM-2 that is managed with oral Metformin at baseline who was admitted for an elective procedure to address his lumbar stenosis and chronic low back pain. He evidently has a longstanding history of intractable back and leg pain to which she is failed conservative nonoperative treatment including medications, physical therapy, and injections. Today he underwent a T9-10 partial bilateral laminectomies with a dorsal column stimulator lead placement, subcutaneous placement of a dorsal, stimulator generator and stimulator programming. We have been consulted in the immediate postoperative. For medical management. At this time he is complaining of pain both in his back and he states he had some lower abdominal pain that is slowly resolving. He has no other complaints at this time. Objective Data Lab / Micro Data Result Diagrams: 03/13/21 13:04 03/13/21 13:04 Physical Exam Const alert, oriented x3, no apparent distress, healthy appearing and well nourished Constitutional Narrative: Obese, upper middle-aged male sitting up in bed, watching television, nontoxic Exam Limitations: no limitations HEENT head/scalp atraumatic, moist oral mucous membranes and oropharynx normal HEENT Narrative: Fair dentition, Mallampati 2, no thrush Head and Scalp: normocephalic Resp normal respiratory effort, no retractions, no use of accessory muscles and clear to auscultation bilaterally Auscultation: Negative for crackles, rales, rhonchi or wheezes Cardio regular rate, regular rhythm, S1 normal heart sound, S2 normal heart sound, no murmurs, no rub, no gallops, no clicks and no JVD GI normal to inspection, nondistended, normoactive bowel sounds, soft to palpation, non-tender and non-distended; Negative for hepatosplenomegaly Extremity no clubbing, cyanosis or edema Extremity Narrative: SCDs and DEN hose in place Peripheral Pulses: Yes pulses 2+ throughout Neuro oriented x3, CN's II-XII intact bilaterally, moves all extremities and no focal motor deficits Sensorium / Orientation: awake and alert Speech: speech normal Assessment & Plan Assessment/Plan (1) Lumbar stenosis: PLAN: Assessment: Lumbar stenosis Chronic low back pain Hypertension DM-2 BPH status post TURP History of tobacco abuse OA Plan: -Agree with the addition of sliding scale--> A1c noted -Agree with addition Accu-Cheks -Add CBC and CMP in a.m. -Continue atenolol/chlorthalidone -Pain management per primary service Charges/Coding Visit Charges OBSV E&M: 24368 Initial observation care L2
[2021-04-17] MEDS: metFORMIN HCl 500 MG Tablet PO (16:46)
[2021-04-17] MEDS: Insulin Lispro 100 UNIT/ML INSULN.PEN SC ×2 (16:49→21:13)
[2021-04-17 17:01] LABS: Bedside Glucose 197 mg/dL (70-110)
[2021-04-17] MEDS: Cefazolin 1 GM/50 ML BAG IV (18:36)
[2021-04-17] MEDS: Docusate Sodium 100 MG Capsule 200 MG PO (21:13)
[2021-04-17 21:20] LABS: Bedside Glucose 179 mg/dL (70-110)
[2021-04-18 02:03] VITALS: BP 142/84; PULSE 81; RESP 18; TEMP 36.6; O2SAT 92
[2021-04-18] MEDS: oxyCODONE 5 MG Tablet PO (02:07)
[2021-04-18] MEDS: Cefazolin 1 GM/50 ML BAG IV (02:08)
[2021-04-18 03:00] VITALS: PULSE 84
[2021-04-18 06:21] LABS: Absolute Lymphocyte Count 0.67 X10^3/uL (0.83-4.51); Absolute Neutrophil Count 5.9 X10^3/uL (2.0-7.7); Basophil# 0.03 X10^3/uL; Basophil% 0.4 % (0-1); Eosinophil# 0.18 X10^3/uL; Eosinophils% 2.4 % (0-5); Hematocrit 38.8 % (40-54); Hemoglobin 12.4 g/dL (13.0-16.5); Lymphocyte # 0.67 X10^3/ul (0.83-4.51); Lymphocyte % 8.9 % (19-41); Mean Corpuscular Hgb 30.5 pg (27.0-32.0); Mean Corpuscular Volume 95.6 fL (80-94); Mean Platelet Vol. 9.6 fl (6.2-12.0); Monocyte# 0.73 X10^3/uL; Monocyte% 9.7 % (0-10); NRBC Flagged by Analyzer 0 % (0-5); Neutrophil # 5.89 X10^3/uL (2.7-7.7); Neutrophil % 78.5 % (47-70); Platelet Count 148 K/mm3 (150-450); RBC Distribution Width CV 13.2 % (11.6-14.6); RBC Distribution Width SD 46.5 fl (35.1-43.9); Red Blood Count 4.06 M/mm3 (4.6-6.2); White Blood Count 7.5 K/mm3 (4.4-11.0)
[2021-04-18] MEDS: Insulin Lispro 100 UNIT/ML INSULN.PEN SC ×2 (06:39→11:04)
[2021-04-18] MEDS: Acetaminophen 500 MG Tablet 1000 MG PO (06:39)
[2021-04-18 06:51] LABS: Bedside Glucose 245 mg/dL (70-110)
[2021-04-18 06:52] LABS: ALB/GLOB Ratio 0.9 RATIO (0.9-2.4); AST(SGOT) 20 U/L (15-37); Alanine Aminotransfer ALT/SGPT 21 U/L (16-61); Albumin, Serum 3.4 g/dL (3.2-5.0); Alkaline Phosphatase 83 U/L (45-117); Anion Gap 7 (5-15); BUN 30 mg/dL (7-18); Calcium,Total 8.6 mg/dL (8.5-10.1); Chloride 102 mmol/L (98-107); Creatinine, Serum 1.43 mg/dL (0.70-1.30); EST Glomerular Filtration Rate 52 mL/min (>60); Est Glom Filt Rate - Afr Amer 63 mL/min (>60); Globulin 3.6 g/dL (2.2-4.2); Glucose 175 mg/dL (74-106); Potassium 3.8 mmol/L (3.5-5.1); Sodium Level 136 mmol/L (136-145)
[2021-04-18 07:25] VITALS: PULSE 86
--- NOTE | 2021-04-18 07:32 | PN.HOSP_ITS ---
Subjective Subjective Patient is a 66-year-old gentleman who underwent T9-10 partial bilateral laminectomies With subcutaneous placement of a dorsal column stimulator generator by spine surgery. The hospitalist service was consulted to assist with management of patient medical comorbidities Objective Data Objective Data Vital Signs: Vital Signs Temp Pulse Resp BP Pulse Ox 98 F 86 18 142/84 H 92 04/18/21 02:03 04/18/21 07:25 04/18/21 02:03 04/18/21 02:03 04/18/21 02:03 Oxygen Delivery Method Room Air Weight: 95 kg Body Mass Index (BMI) 31.8 Intake & Output: Intake and Output for Last 24 Hours 04/16/21 04/17/21 04/18/21 23:59 23:59 23:59 Intake Total 2825.33 / 2825.33 1050 / 1050 Balance 2825.33 / 2825.33 1050 / 1050 Lab / Micro Data Result Diagrams: 04/18/21 06:00 04/18/21 06:00 Labs: Laboratory Results - last 24 hr 04/17/21 09:09: POC Glucose 171 H 04/17/21 13:14: POC Glucose 172 H 04/17/21 16:43: POC Glucose 197 H 04/17/21 21:12: POC Glucose 179 H 04/18/21 06:00: WBC 7.5, RBC 4.06 L, Hgb 12.4 L, Hct 38.8 L, MCV 95.6 H, MCH 30.5, MCHC 32.0, RDW Std Deviation 46.5 H, RDW Coeff of Jae 13.2, Plt Count 148 L, MPV 9.6, Immature Gran % (Auto) 0.100, Neut % (Auto) 78.5 H, Lymph % (Auto) 8.9 L, Pettis % (Auto) 9.7, Eos % (Auto) 2.4, Baso % (Auto) 0.4, Absolute Neuts (auto) 5.9, Absolute Lymphs (auto) 0.67 L, Nucleated RBC % 0 04/18/21 06:00: Sodium 136, Potassium 3.8, Chloride 102, Carbon Dioxide 27.0, Anion Gap 7, BUN 30 H, Creatinine 1.43 H, Estim Creat Clear Calc 48.50, Est GFR (MDRD) Af Amer 63, Est GFR (MDRD) Non-Af 52 L, BUN/Creatinine Ratio 21.0 H, Glucose 175 H, Calcium 8.6, Total Bilirubin 0.90, AST 20, ALT 21, Alkaline Phosphatase 83, Total Protein 7.0, Albumin 3.4, Globulin 3.6, Albumin/Globulin Ratio 0.9 04/18/21 06:37: POC Glucose 245 H Physical Exam Narrative GENERAL: cooperative HEENT: Atraumatic; EYES; Anicteric, Normal Conjunctiva NECK; supple, normal thyroid, RESPIRATORY: Diminished to auscultation CARDIOVASCULAR: Regular S1 S2, GI: soft, normoactive bowel sounds, : No Renal angle tenderness; EXTREMITIES: No edema, no clubbing, MUSCULOSKELETAL: no muscle waisting NEURO: Awake; no lateralizing signs. SKIN: No Rash PSYCH; Flat affect Assessment & Plan Assessment/Plan (1) Lumbar stenosis: PLAN: Patient is a 66-year-old gentleman who underwent T9-10 partial bilateral laminectomies With subcutaneous placement of a dorsal column s timulator generator by spine surgery. The hospitalist service was consulted to assist wit 1. Lumbar stenosis ?Status postT9-10 partial bilateral laminectomies With subcutaneous placement of a dorsal column stimulator generator by spine surgery by Dr. Hal Pearson on 04/17/2021; 2. Hypertension - Blood pressure controlled, home medications continued with dose adjustment as needed 3. Diabetes mellitus type 2 ?Patient is on Metformin this was continued he was also placed on Accu-Cheks before meals and at bedtime 4.BPH ?With history of TURP 5. DVT prophylaxis ?Defer to primary service Charges/Coding Visit Charges Inpatient E&M: 68224 Subs Hosp L2
[2021-04-18] MEDS: metFORMIN HCl 500 MG Tablet PO (07:34)
[2021-04-18] MEDS: Chlorthalidone 50 MG Tablet 25 MG PO (07:35)
[2021-04-18] MEDS: Docusate Sodium 100 MG Capsule 200 MG PO (07:35)
[2021-04-18] MEDS: Atenolol 50 MG Tablet PO (07:35)
[2021-04-18 07:52] VITALS: BP 134/86; PULSE 88; RESP 16; TEMP 37; O2SAT 96
[2021-04-18] MEDS: Gabapentin 300 MG Capsule PO (08:57)
[2021-04-18] MEDS: dexAMETHasone 4 MG/ML Vial IV (09:09)
[2021-04-18 11:06] VITALS: BP 131/94; PULSE 82; RESP 16; TEMP 36.4; O2SAT 96
[2021-04-18 11:10] LABS: Bedside Glucose 226 mg/dL (70-110)
--- NOTE | 2021-04-18 11:20 | CASEMGMT ---
RN CM MINCEMEAT MAKER CM to room to meet with patient for initial transition planning/care coordination assessment. RN NAS introduced self and role at [facility]. Pt voices understanding and consents to assessment at this time. Pt sitting on edge of bed in no distress at this time. Pt is A/O at this time and answers all questions appropriately. Care providers, pharmacy, and demographics verified/updated at this time. PCP: Dr Emery Alamo Specialists: Dr Pearson-anni Preferred Pharmacy: [facility] Insurance: [facility] Prescription Benefit: Yes Living Will/HPOA: Has both. , Ambar, is HPOA LNOK: , Ambar Living Arrangements: Lives w/ in 2-story home w/5 steps to enter. FFSU. Pt is independent w/ADL's. does most home mgmt tasks. Pt does outside work. Transportation: Pt states drives self and states no transportation concerns at this time. also drives DME: States has the following DME: walker, glucometer Pt states no need for further DME at this time. HHC/SNF: No hx of either Pt wishes to return home and states has no concerns with going home at time of discharge. CM to follow for any discharge planning/needs. Pt voices no concerns/needs at this time. Advised pt to ask for CM if any questions/concerns/needs arise. Voices understanding. PLAN: Home w/spousal support and discharge plans in place. Dona CURRY RN, CM
--- NOTE | 2021-04-18 12:16 | NURSING ---
dressing materials sent with pt at discharge
--- NOTE | 2021-04-18 12:16 | CASEMGMT ---
SAHARA CM in to discuss PRATHER form with patient. RN CM explained PRATHER form, patient voiced understanding. Pt signed form and filed in chart. Pt provided with a copy of signed PRATHER form. Patient had no further questions or concerns at this time.
== END 2021-04-18 12:41 | disposition home or self-care (01) ==
LOC: MS3 15:53
PROVIDERS: Anesthesiology; Internal Medicine; Admitting Provider Orthopaedic Surgery; PCP Family Medicine; Referring Provider Orthopaedic Surgery; Visit Provider Internal Medicine
PROC: (CPT 63030; principal; 2021-04-17 09:55)
DX: Z45.42 Encounter for adjustment and management of neurostimulator (principal); E11.9 Type 2 diabetes mellitus without complications; M48.061 Spinal stenosis, lumbar region without neurogenic claudication; M47.26 Other spondylosis with radiculopathy, lumbar region; Z79.84 Long term (current) use of oral hypoglycemic drugs; N40.0 Benign prostatic hyperplasia without lower urinary tract symptoms; I10 Essential (primary) hypertension; G89.29 Other chronic pain; Z87.891 Personal history of nicotine dependence; Z79.899 Other long term (current) drug therapy; M51.36 Other intervertebral disc degeneration, lumbar region; Z01.818 Encounter for other preprocedural examination; Z01.811 Encounter for preprocedural respiratory examination; R20.2 Paresthesia of skin
CPT/HCPCS: 63685; 63655; 95977; 36415; 71046; 72070; 76000; 80048; 80053; 82962; 83036; 85025; 85610; 85730; 93005; 96361; 96365; 96366; 96375; 97162; 99218; 99251; C1778; C1820; J7120; G0378; G0463; J0330; J2405

== ENCOUNTER → 2021-08-28 | Outpatient (CLI) | payer MEDICARE, SELFPAY ==
[2021-08-28 11:09] LABS: PSA,Total- Diagnostic 1.78 ng/mL (0.0-4.0)
== END | disposition home or self-care (01) ==
PROVIDERS: PCP Family Medicine; Visit Provider Urology
DX: C61 Malignant neoplasm of prostate (principal)
CPT/HCPCS: 36415; 84153

== ENCOUNTER 2022-03-28 10:15 | Emergency (ER) | payer MEDICARE, SELFPAY ==
[2022-03-28 10:17] VITALS: BP 117/72; PULSE 74; RESP 17; TEMP 36.3; O2SAT 98; BMI 28.8
--- NOTE | 2022-03-28 10:57 | EKG12_ITS ---
Test Reason : SYNCOPE Blood Pressure : / mmHG Vent. Rate : 071 BPM Atrial Rate : 071 BPM P-R Int : 192 ms QRS Dur : 106 ms QT Int : 400 ms P-R-T Axes : 060 -08 008 degrees QTc Int : 434 ms Normal sinus rhythm Normal ECG Confirmed by VALNETINA KATZ, URSZULA ([id number]), video tape editor MELISSA HULL ([id number]) on 03/30/2022 1:40:05 PM Referred By: Confirmed By:URSZULA MONTGOMERY MD
--- NOTE | 2022-03-28 10:59 | EDS_ITS ---
HPI History of Present Illness Chief Complaint: Syncope Informant: patient Onset/Context/Timing Onset: Today Context: Sudden Onset (prodromal lightheadedness, no other sx) Current Severity: Gone Maximum Severity: Severe Worsened by: nothing in particular Relieved by: nothing Narrative Narrative: Patient states he got up this morning and was helping his daughter outside with a hose, he was really hot inside the house before he went out, where it was cold. Then he came back and, sat down and had some coffee. He felt fine. He then got up to walk to the kitchen, he then felt lightheaded and was told by family that he passed out and collapsed. He denies any injury. He then woke up, he did not have any of his blood sugar equipment with him so he did not check it, he is a type II diabetic, on metformin. Thinking he is blood sugar might have dropped, he then ate a peanut butter sandwich and several candy bars. He was feeling foggy and disoriented when he woke up, that has gradually been improving since this occurred 1 or 2 hours ago and now he states he feels a little foggy but otherwise back to normal. No more lightheadedness. Denies any chest pain or dyspnea or headache prior to this, but states he has been feeling short of breath off and on that does not make any sense, he cannot recall exactly for how long. None of it has resulted in syncope. He states last night he took his metformin before going to bed and then this morning he has not eaten anything before this occurred, but he did take his metformin this morning as well as an oxycodone for chronic pain in his low back for which she has a stimulator. He states this was a mistake, he usually does not take his oxycodone early in the morning, nor does he take his metformin without eating anything and he is convinced that this was all blood sugar-related. No history of DVT or PE. No recent travel out of the area, no recent immobilization, admission to hospital for any reason, or surgeries. No recent leg pain or swelling. Takes no antiplatelet or anticoagulant medications. Takes nothing other than metformin for his type 2 diabetes. [facility] Medical History Arthritis Diabetes Former smoker History of stress test Hypertension Injury of head and neck Wears glasses Home Medications atenolol 50 mg-chlorthalidone 25 mg tablet 1 ea PO DAILY BP 05/06/18 [History Last Taken 05/13/18 05:00] metformin 500 mg tablet 500 mg PO BID 03/13/21 [History Last Taken Unknown] oxycodone 5 mg capsule 5 mg PO BID PRN Pain 03/13/21 [History Last Taken Unknown] oxycodone 5 mg tablet 5 mg PO Q6H 7 days #28 TABLETS 04/17/21 [Rx Last Taken Unknown] Allergy/AdvReac Type Severity Reaction Status Date / Time morphine AdvReac confusion Verified 03/28/22 10:15 Family History other other (father w/ thoracic aortic leaking aneurysm) Surgical History (Updated 03/13/21 @ 11:44 by Marah Henry) History of cervical spinal surgery History of knee joint replacement History of surgery Social History Smoking Status: Former smoker ROS ROS ED Constitutional Constitutional ED: Denies chills or fever(s) Eyes Eyes: Denies change in vision or diplopia ENT ENT ED: Denies rhinorrhea or sore throat Cardiovascular Cardiovascular: Reports as per HPI, lightheadedness and syncope; Denies chest pain, flutter in chest, leg edema, palpitations, radiating jaw, neck or arm pain or rapid heart rate Respiratory/Chest Respiratory/Chest: Reports dyspnea; Denies cough Gastrointestinal Gastrointestinal: Denies abdominal pain, diarrhea, nausea or vomiting Genitourinary Genitourinary ED: Denies dysuria or hematuria Musculoskeletal Musculoskeletal: Denies back pain or neck pain Integumentary Denies abscess or rash Neurologic Neurologic: Denies headache(s), paresthesias or weakness Psychiatric Psychiatric: Denies anxiety or suicidal thoughts EXAM Physical Exam Const Vital Signs: 03/28/22 10:17 03/28/22 11:14 03/28/22 11:14 Temperature 97.3 F L Temperature Source Temporal Pulse Rate 74 63 Pulse Rate [Lying] Pulse Rate [Sitting (for 1 minute prior to obtaining)] Pulse Rate [Standing (for 1 minute prior to obtaining)] Respiratory Rate 17 18 Respiratory Pattern Normal Blood Pressure 117/72 120/83 H Blood Pressure [Lying] Blood Pressure [Sitting (for 1 minute prior to obtaining)] Blood Pressure [Standing (for 1 minute prior to obtaining)] Blood Pressure Mean 87 95 Blood Pressure Mean [Lying] Blood Pressure Mean [Sitting (for 1 minute prior to obtaining)] Blood Pressure Mean [Standing (for 1 minute prior to obtaining)] Pulse Ox 98 Oxygen Delivery Method Room Air 03/28/22 12:00 03/28/22 12:23 Temperature Temperature Source Pulse Rate 61 Pulse Rate [Lying] 59 L Pulse Rate [Sitting (for 1 minute prior to obtaining)] 66 Pulse Rate [Standing (for 1 minute prior to obtaining)] 71 Respiratory Rate 14 Respiratory Pattern Blood Pressure 119/71 Blood Pressure [Lying] 111/74 Blood Pressure [Sitting (for 1 minute prior to obtaining)] 130/83 H Blood Pressure [Standing (for 1 minute prior to obtaining)] 139/84 H Blood Pressure Mean 87 Blood Pressure Mean [Lying] 86 Blood Pressure Mean [Sitting (for 1 minute prior to obtaining)] 98 Blood Pressure Mean [Standing (for 1 minute prior to obtaining)] 102 Pulse Ox Oxygen Delivery Method Positive well nourished and well developed General Appearance ED: well developed and NAD HEENT Reports moist mucous membranes normocephalic and atraumatic Eyes PERRL and EOMs intact bilaterally Neck full ROM and supple Resp normal respiratory effort and clear to auscultation bilaterally Cardio regular rate, regular rhythm and no murmurs GI non-tender and non-distended Auscultation: normoactive bowel sounds Palpation: soft Back/Spine no CVA tenderness General Back: other FROM Extremity normal to inspection, no calf tenderness and no pedal edema General Extremety ED: Negative for edema, pulses abnormal or tenderness General Extremity: Negative for edema or pulses abnormal Neuro oriented x3, CN's II-XII intact bilaterally and no sensory deficits noted Sensorium / Orientation: awake and alert Motor Exam: strength 5/5 throughout Psych mental status grossly normal Skin no rashes or lesions noted and no wounds MDM MDM MDM Narrative Medical decision making narrative: Patient has a normal EKG, negative cardiac work-up with regards to troponin, his blood counts are normal. Elevated, but when corrected for his age, it is well within normal limits, ruling out pulmonary embolus as acute cause of his syncopal episode, and most research supports this ruling out an acute aortic dissection as well, which he does not have symptoms of at this time. Orthostatics are negative. He is feeling well and had no recurrent symptoms or telemetry events here in the ED during his several-hour stay. He prefers to go home when offered admission, I am in agreement I think this is a low risk syncope and I think it is safe for him to go home and follow-up closely as an outpatient. Undetermined if this is blood sugar related or not, I think the history suggests it is less likely which I discussed with him as well. Lab Data Attestation: I reviewed the patient's lab results. Labs: Laboratory Results - last 24 hr 03/28/22 03/28/22 03/28/22 11:10 11:10 11:10 WBC 8.4 RBC 4.53 L Hgb 13.7 Hct 42.5 MCV 93.8 MCH 30.2 MCHC 32.2 RDW Std Deviation 48.1 H RDW Coeff of Jae 13.9 Plt Count 162 MPV 9.5 Immature Gran % (Auto) 0.500 Neut % (Auto) 85.1 H Lymph % (Auto) 7.9 L Williamson % (Auto) 5.3 Eos % (Auto) 0.7 Baso % (Auto) 0.5 Absolute Neuts (auto) 7.1 Absolute Lymphs (auto) 0.66 L Nucleated RBC % 0 D-Dimer Quant (PE/DVT) 0.65 H* Sodium 135 L Potassium 3.7 Chloride 106 Carbon Dioxide 25.0 Anion Gap 4 L BUN 36 H Creatinine 1.66 H Estim Creat Clear Calc 43.18 Est GFR (MDRD) Af Amer 53 L Est GFR (MDRD) Non-Af 44 L BUN/Creatinine Ratio 21.7 H Glucose 242 H Calcium 8.6 Troponin I High Sens 11 Radiography Chest X-Ray - ED: 2 View, Read by ED Physician, No Acute Disease and Cardiomegaly Diagnostic Testing: Clinical Impression(s) from Imaging Studies Chest X-Ray 03/28/22 11:47 IMPRESSION: Degenerative changes, as described above. No demonstrated acute cardiopulmonary process. Electronically Signed: Thony Patton MD at 13:13 EST , Rhythm Strip Rhythm Strip: Sinus Rhythm Rate: 75 Ectopy: None EKG Initial EKG: Attestation: I personally reviewed and interpreted this EKG as follows: Interpretation: Sinus Rhythm and No Acute Injury Pattern Prior EKG tracings: available for review Prior: Unchanged Discharge Plan Triage Chief Complaint: Syncope ED Provider: Edmundo Bowden Dx/Rx/DC Orders Clinical Impression: Syncope Instructions: Causes of Syncope Prescriptions: No Action atenolol-chlorthalidone 1 EACH tablet 1 ea PO DAILY metformin 500 mg Tablet 500 mg PO BID oxycodone 5 mg Capsule 5 mg PO BID PRN (Reason: Pain) oxycodone 5 mg tablet 5 mg PO Q6H 7 Days Qty: 28 0RF Primary Care Provider: Saad Alamo Referrals: Saad Alamo MD [Primary Care Provider] - 3-5 Days Disposition Disposition: Home, Self Care
[2022-03-28 11:14] VITALS: BP 120/83; PULSE 63; RESP 18
[2022-03-28 11:22] LABS: Absolute Lymphocyte Count 0.66 X10^3/uL (0.83-4.51); Absolute Neutrophil Count 7.1 X10^3/uL (2.0-7.7); Basophil# 0.04 X10^3/uL; Basophil% 0.5 % (0-1); Eosinophil# 0.06 X10^3/uL; Eosinophils% 0.7 % (0-5); Hematocrit 42.5 % (40-54); Hemoglobin 13.7 g/dL (13.0-16.5); Lymphocyte # 0.66 X10^3/ul (0.83-4.51); Lymphocyte % 7.9 % (19-41); Mean Corp Hgb Conc 32.2 g/dL (32-36); Mean Corpuscular Hgb 30.2 pg (27.0-32.0); Mean Corpuscular Volume 93.8 fL (80-94); Mean Platelet Vol. 9.5 fl (6.2-12.0); Monocyte# 0.44 X10^3/uL; Monocyte% 5.3 % (0-10); NRBC Flagged by Analyzer 0 % (0-5); Neutrophil # 7.13 X10^3/uL (2.7-7.7); Neutrophil % 85.1 % (47-70); Platelet Count 162 K/mm3 (150-450); RBC Distribution Width CV 13.9 % (11.6-14.6); RBC Distribution Width SD 48.1 fl (35.1-43.9); Red Blood Count 4.53 M/mm3 (4.6-6.2); White Blood Count 8.4 K/mm3 (4.4-11.0)
[2022-03-28 11:38] LABS: D-Dimer Quantitative (DVT/PE) 0.65 FEU/ug/m (0.27-0.49)
--- NOTE | 2022-03-28 11:47 | RAD_ITS ---
STUDY: X-RAY CHEST REASON FOR EXAM: Male, 66 years old. syncope,mediastinal eval TECHNIQUE: PA and lateral views of the chest. COMPARISON: March 13, 2021 FINDINGS: Interval appearance of posterior thoracic spine stimulating catheters. Stable cervical spine hardware. The lungs are clear and expanded. There is no demonstrated pleural abnormality. Normal size heart. There are calcified mediastinal lymph nodes. Normal visualized pulmonary arteries. There is atherosclerotic calcification of the aortic arch with tortuosity. There are diffuse degenerative changes of the visualized thoracic spine. Normal visualized ribs, clavicles, and shoulders. There is no demonstrated abnormality of the visualized soft tissue structures of the upper abdomen. RAD/Chest PA and Lateral IMPRESSION: Degenerative changes, as described above. No demonstrated acute cardiopulmonary process. Electronically Signed: Thony Patton MD at 13:13 EST ,
[2022-03-28 11:48] LABS: Anion Gap 4 (5-15); BUN 36 mg/dL (7-18); BUN/Creat Ratio 21.7 RATIO (10-20); Calcium,Total 8.6 mg/dL (8.5-10.1); Chloride 106 mmol/L (98-107); Creatinine, Serum 1.66 mg/dL (0.70-1.30); EST Glomerular Filtration Rate 44 mL/min (>60); Est Glom Filt Rate - Afr Amer 53 mL/min (>60); Estimated Creatinine Clearance 43.18 ml/min; Glucose 242 mg/dL (74-106); Potassium 3.7 mmol/L (3.5-5.1); Sodium Level 135 mmol/L (136-145); Troponin-I HS (w/2H Reflex) 11 pg/mL (3.0-78.0)
[2022-03-28 12:00] VITALS: BP 119/71; PULSE 61; RESP 14
[2022-03-28 12:23] VITALS: BP 111/74; BP 130/83; BP 139/84; PULSE 59; PULSE 66; PULSE 71
[2022-03-28 13:19] LABS: Reflex Troponin-HS? (from REC) Y
[2022-03-28 14:13] LABS: Troponin-I HS 9 pg/mL (3.0-78.0)
[2022-03-28 14:17] VITALS: BP 132/74; PULSE 63
== END 2022-03-28 14:17 | disposition home or self-care (01) ==
PROVIDERS: Emergency Provider Emergency Medicine; PCP Family Medicine; Visit Provider Emergency Medicine
DX: R55 Syncope and collapse (principal); E11.9 Type 2 diabetes mellitus without complications; Z79.84 Long term (current) use of oral hypoglycemic drugs; Z87.891 Personal history of nicotine dependence
CPT/HCPCS: 71046; 80048; 84484; 85025; 85379; 93005; 99285; A4216

== ENCOUNTER 2022-12-11 09:08 | Emergency (ER) | payer MEDICARE, SELFPAY ==
[2022-12-11 09:09] VITALS: BP 141/105; PULSE 79; RESP 14; TEMP 36.6; O2SAT 97; BMI 25.9
--- NOTE | 2022-12-11 09:28 | EKG12_ITS ---
Test Reason : CP Blood Pressure : / mmHG Vent. Rate : 075 BPM Atrial Rate : 075 BPM P-R Int : 204 ms QRS Dur : 098 ms QT Int : 366 ms P-R-T Axes : 023 -63 014 degrees QTc Int : 408 ms AV dual-paced rhythm Abnormal ECG Confirmed by DOMENICO KATZ, BECKI ([id number]), dictionary editor RAINE GOMES ([id number]) on 12/15/2022 10:19:31 AM Referred By: ADAM/ARLET Confirmed By:AYDEE ACUÑA MD
--- NOTE | 2022-12-11 09:28 | RAD_ITS ---
STUDY: X-RAY CHEST REASON FOR EXAM: Male, 67 years old. Chest pain TECHNIQUE: Single AP portable view of the chest. COMPARISON: Comparison is made with prior study dated March 28, 2002. FINDINGS: EKG electrodes are seen. Mild increased markings at the left lung base suggestive of left basilar atelectasis. There is no demonstrated pleural abnormality. Normal size heart. Calcified right hilar lymph nodes. Normal visualized pulmonary arteries. There is atherosclerotic tortuosity of the aortic arch and descending thoracic aorta. There are diffuse degenerative changes of the visualized thoracic spine. Electrodes from a spinal cord stimulator device are seen at the T7-T8 level. Prior fusion in the lower cervical spine. There is no demonstrated abnormality of the visualized soft tissue structures of the upper abdomen. RAD/Chest 1 View (Portable) IMPRESSION: Findings suggest some mild increased markings at the left lung base suggestive of left basilar atelectasis Electronically Signed: Jung Vargas MD at 9:57 EDT ,
--- NOTE | 2022-12-11 09:30 | EDS_ITS ---
HPI History of Present Illness Chief Complaint: Chest Pain Informant: patient and spouse/S.O. Narrative Narrative: 67-year-old male presenting to the emergency room for chief complaint of left arm and chest pain. Patient states for about the past 2 weeks he has had a constant pain in the entirety of the left arm but most significantly in the left elbow. He states the pain in the left elbow acutely gets worse about the same time he gets the pain very focally in the left pectoralis region and also by his left shoulder blade. He has had several cervical and lumbar surgeries. He spoke about this with his surgeon who is referred him to another surgeon. He notes new paresthesias in the left arm. He denies any cough or shortness of breath. He notes the symptoms tend to be worse in the evening late afternoon hours. He denies any syncope. No known cardiac disease. Does have a history of hypertension and takes metformin for diabetes. Our records show that he had a stress test in 2009 at an outside facility. [facility] Medical History Arthritis Diabetes Former smoker History of stress test Hypertension Injury of head and neck Wears glasses Home Medications atenolol 50 mg-chlorthalidone 25 mg tablet 1 ea PO DAILY BP 05/06/18 [History Last Taken 05/13/18 05:00] metformin 500 mg tablet 500 mg PO BID 03/13/21 [History Last Taken Unknown] oxycodone 5 mg capsule 5 mg PO BID PRN Pain 03/13/21 [History Last Taken Unknown] oxycodone 5 mg tablet 5 mg PO Q6H 7 days #28 TABLETS 04/17/21 [Rx Last Taken Unknown] cyclobenzaprine 10 mg tablet 10 mg PO TID PRN Muscle Spasm #15 TABLETS 12/11/22 [Rx Last Taken Unknown] Allergy/AdvReac Type Severity Reaction Status Date / Time morphine AdvReac confusion Verified 12/11/22 09:10 Surgical History History of cervical spinal surgery History of knee joint replacement History of surgery Social History Smoking Status: Former smoker ROS ROS ED Constitutional Constitutional ED: Denies chills or weight loss Eyes Eyes: Denies change in vision or diplopia ENT ENT ED: Denies ear pain, rhinorrhea or sore throat Cardiovascular Cardiovascular: Reports chest pain; Denies orthopnea, palpitations or racing heartbeat Respiratory/Chest Respiratory/Chest: Denies cough, dyspnea or orthopnea Gastrointestinal Gastrointestinal: Denies abdominal pain, diarrhea, nausea or vomiting Genitourinary Genitourinary ED: Denies dysuria, hematuria or urinary frequency Musculoskeletal Musculoskeletal: Reports back pain, neck pain and other Details: See history of present illness ; Denies arthralgias or myalgias Integumentary Denies abscess or rash Neurologic Neurologic: Reports paresthesias; Denies headache(s) or weakness Psychiatric Psychiatric: Denies anxiety, depression, suicidal ideation or suicidal thoughts Endocrine Endocrinology: Denies polydipsia, polyphagia or polyuria Allergic/Immunologic Allergic/Immunologic ED: Denies mouth swelling, tongue swelling or urticaria EXAM Physical Exam Const Vital Signs: 12/11/22 09:09 12/11/22 10:23 12/11/22 11:50 Temperature 97.8 F Temperature Source Temporal Pulse Rate 79 62 63 Respiratory Rate 14 22 H 21 H Blood Pressure 141/105 H 133/88 H 128/81 H Blood Pressure Mean 117 103 96 Pulse Ox 97 97 96 Oxygen Delivery Method Room Air Room Air Room Air Positive well nourished and well developed General Appearance ED: well developed HEENT Reports normocephalic, head/scalp atraumatic and moist mucous membranes Eyes PERRL and EOMs intact bilaterally Neck no lymphadenopathy, supple and no JVD Neck Narrative: There is a well-healed midline cervical spine incision. Patient flinches when I palpate the inferior medial musculature to the left scaphoid. Though he states it does not hurt. He states that that is the area that he feels discomfort in. Chest Wall inspection of chest normal and palpation of chest normal Chest Narrative: Patient points with 1 finger to a very focal area in the lateral inferior aspect of the left pectoralis region which coincides with the same rib that is in the back near the scapula that he states hurts at times. Resp normal respiratory effort and clear to auscultation bilaterally Cardio regular rate, regular rhythm and no murmurs GI normal to inspection, nondistended, normoactive bowel sounds and non-tender Palpation: soft Back/Spine no CVA tenderness and normal ROM Extremity normal to inspection General Extremety ED: Negative for edema General Extremity: Negative for edema Neuro oriented x3 and CN's II-XII intact bilaterally Sensorium / Orientation: alert Motor Exam: strength 5/5 throughout Psych mental status grossly normal Mood & Affect: Negative for depressed or tearful Skin no rashes or lesions noted and no wounds MDM MDM MDM Narrative Medical decision making narrative: Basic blood work showed white count 7.9 hemoglobin 15.1. 2 sets of cardiac enzymes are normal. D-dimer is elevated 0.92 and does not age correct. CTA of the chest was ordered. This was negative for pulmonary embolism. Because his creatinine 1.74 and the CTA performed today advised him to drink some extra fluids today. I spoke with the patient mentioned that this could be rib related in the chest given that it is along the same line and he states yes that is exactly what it feels like. I suppose it is possible he is having trapezius spasms which are then irritating the nerves going down towards the left arm. I think this symptoms are most likely be musculoskeletal. He is to follow-up with his doctors. Lab Data Attestation: I reviewed the patient's lab results. Labs: Laboratory Results - last 24 hr 12/11/22 12/11/22 09:20 11:30 WBC 7.9 RBC 4.76 Hgb 15.1 Hct 45.5 MCV 95.6 H MCH 31.7 MCHC 33.2 RDW Std Deviation 49.5 H RDW Coeff of Jae 14.1 Plt Count 161 MPV 10.3 Immature Gran % (Auto) 0.400 Neut % (Auto) 69.3 Lymph % (Auto) 16.5 L Graham % (Auto) 9.1 Eos % (Auto) 3.9 Baso % (Auto) 0.8 Absolute Neuts (auto) 5.5 Absolute Lymphs (auto) 1.31 Nucleated RBC % 0 D-Dimer Quant (PE/DVT) 0.92 H* Sodium 135 L Potassium 3.3 L Chloride 104 Carbon Dioxide 24.0 Anion Gap 7 BUN 29 H Creatinine 1.74 H Estim Creat Clear Calc 41.95 Est GFR (MDRD) Af Amer 50 L Est GFR (MDRD) Non-Af 42 L BUN/Creatinine Ratio 16.7 Glucose 208 H Calcium 8.9 Troponin I High Sens 23 20 Radiography Diagnostic Testing: Clinical Impression(s) from Imaging Studies Chest X-Ray 12/11/22 09:28 IMPRESSION: Findings suggest some mild increased markings at the left lung base suggestive of left basilar atelectasis Electronically Signed: Jung Vargas MD at 9:57 EDT , Chest CTA 12/11/22 10:30 IMPRESSION: No evidence of pulmonary embolism. Emphysematous changes with scarring at the lung bases. Electronically Signed: Jung Vargas MD at 11:08 EDT , EKG Initial EKG: Attestation: I personally reviewed and interpreted this EKG as follows: Comments: Sinus rhythm with a ventricular rate of 75 bpm. Nonspecific intraventricular conduction delay which she states is probably from his spinal stimulator Discharge Plan Triage Chief Complaint: Chest Pain ED Provider: Jeffry Leyva Dx/Rx/DC Orders Clinical Impression: Arm pain, left, Chest pain Instructions: ED Chest Pain, Uncertain Cause Prescriptions: New cyclobenzaprine [cyclobenzaprine] 10 mg tablet 10 mg PO TID PRN (Reason: Muscle Spasm) Qty: 15 0RF No Action atenolol-chlorthalidone 1 EACH tablet 1 ea PO DAILY metformin 500 mg Tablet 500 mg PO BID oxycodone 5 mg Capsule 5 mg PO BID PRN (Reason: Pain) oxycodone 5 mg tablet 5 mg PO Q6H 7 Days Qty: 28 0RF Primary Care Provider: Saad Alamo Referrals: Saad Alamo MD [Primary Care Provider] - 1 Week if not improving Disposition Disposition: Home, Self Care
[2022-12-11] MEDS: Ketorolac 15 MG/ML Vial IV (09:37)
[2022-12-11 09:41] LABS: Absolute Lymphocyte Count 1.31 X10^3/uL (0.83-4.51); Absolute Neutrophil Count 5.5 X10^3/uL (2.0-7.7); Basophil# 0.06 X10^3/uL; Basophil% 0.8 % (0-1); Eosinophil# 0.31 X10^3/uL; Eosinophils% 3.9 % (0-5); Hematocrit 45.5 % (40-54); Hemoglobin 15.1 g/dL (13.0-16.5); Lymphocyte # 1.31 X10^3/ul (0.83-4.51); Lymphocyte % 16.5 % (19-41); Mean Corp Hgb Conc 33.2 g/dL (32-36); Mean Corpuscular Hgb 31.7 pg (27.0-32.0); Mean Corpuscular Volume 95.6 fL (80-94); Mean Platelet Vol. 10.3 fl (6.2-12.0); Monocyte# 0.72 X10^3/uL; Monocyte% 9.1 % (0-10); NRBC Flagged by Analyzer 0 % (0-5); Neutrophil # 5.51 X10^3/uL (2.7-7.7); Neutrophil % 69.3 % (47-70); Platelet Count 161 K/mm3 (150-450); RBC Distribution Width CV 14.1 % (11.6-14.6); RBC Distribution Width SD 49.5 fl (35.1-43.9); Red Blood Count 4.76 M/mm3 (4.6-6.2); White Blood Count 7.9 K/mm3 (4.4-11.0)
[2022-12-11 09:59] LABS: Anion Gap 7 (5-15); BUN 29 mg/dL (7-18); BUN/Creat Ratio 16.7 RATIO (10-20); Calcium,Total 8.9 mg/dL (8.5-10.1); Chloride 104 mmol/L (98-107); Creatinine, Serum 1.74 mg/dL (0.70-1.30); EST Glomerular Filtration Rate 42 mL/min (>60); Est Glom Filt Rate - Afr Amer 50 mL/min (>60); Estimated Creatinine Clearance 41.95 ml/min; Glucose 208 mg/dL (74-106); Potassium 3.3 mmol/L (3.5-5.1); Sodium Level 135 mmol/L (136-145); Troponin-I HS (w/2H Reflex) 23 pg/mL (3.0-78.0)
[2022-12-11 10:11] LABS: D-Dimer Quantitative (DVT/PE) 0.92 FEU/ug/m (0.27-0.49)
[2022-12-11 10:23] VITALS: BP 133/88; PULSE 62; RESP 22; O2SAT 97
--- NOTE | 2022-12-11 10:30 | CT_ITS ---
STUDY: CTA CHEST REASON FOR EXAM: Male, 67 years old. Pulmonary embolism RADIATION DOSAGE (If Supplied By Facility): CTDIvol = ( 15.63 ) mGy, DLP = ( 416.23 ) mGycm TECHNIQUE: The examination was performed with the intravenous administration of IV 100mL Isovue-370. Post-processing of the angiographic images was performed, with multiplanar reformation and 3D reconstruction. Individualized dose optimization techniques were used for this CT. COMPARISON: Comparison is made with prior chest radiograph done earlier in the day. FINDINGS: Normal enhancement of the main pulmonary artery and right and left pulmonary arteries. Normal enhancement of the bilateral peripheral pulmonary arteries. There is no demonstrated pulmonary embolism. There is atherosclerotic calcification of the aortic arch with tortuosity. There is no demonstrated aortic dissection. There are calcifications of the coronary arteries. There are visualized mediastinal lymph nodes, which are within normal size limits, and with normal morphology. Calcified right hilar lymph nodes. Normal visualized trachea and bronchi. Hyperinflation. Diffuse emphysematous changes worse in the upper lobes with multiple small blebs worse in the right upper lobe. Mild bronchiectasis and a subpleural cystic changes at the lung bases suggestive of a scarring. This is worse on the left side. Calcified granuloma in the right lower lobe. Normal pleura. Normal chest wall structures. There are degenerative changes of thoracic spine. A spinal cord stimulator device electrodes are seen. Multiple splenic granulomas. CT/CTA Chest W/WO Contrast IMPRESSION: No evidence of pulmonary embolism. Emphysematous changes with scarring at the lung bases. Electronically Signed: Jung Vargas MD at 11:08 EDT ,
[2022-12-11 11:34] LABS: Reflex Troponin-HS? (from REC) Y
[2022-12-11 11:50] VITALS: BP 128/81; PULSE 63; RESP 21; O2SAT 96
[2022-12-11 11:53] LABS: Troponin-I HS 20 pg/mL (3.0-78.0)
[2022-12-11 12:10] VITALS: BP 128/81; PULSE 63; RESP 20; O2SAT 96
== END 2022-12-11 12:16 | disposition home or self-care (01) ==
PROVIDERS: Emergency Provider Emergency Medicine; PCP Family Medicine; Visit Provider Emergency Medicine
DX: M79.602 Pain in left arm (principal); R07.9 Chest pain, unspecified; Z87.891 Personal history of nicotine dependence
CPT/HCPCS: 71045; 71275; 80048; 84484; 85025; 85379; 93005; 96374; 99284; Q9967; A4216

== ENCOUNTER → 2022-12-15 | Outpatient (CLI) | payer MEDICARE, SELFPAY ==
--- NOTE | 2022-12-15 15:15 | RAD_ITS ---
STUDY: X-RAY - CERVICAL SPINE REASON FOR EXAM: Male, 67 years old. Radiculopathy, cervical region TECHNIQUE: 3 view(s) of the cervical spine were obtained. COMPARISON: None FINDINGS: Normal anterior atlantoaxial articulation. Normal odontoid process. There has been previous posterior pedicle screw fusion surgery in the C-spine from C3 to C7. Hardware is intact and free of complication There is reversal of the normal cervical lordosis. Normal vertebral bodies and endplates. There is multi-level degenerative disc disease with multilevel disc space narrowing. The soft tissue structures are unremarkable. RAD/Cerv Spine 2 or 3 Views IMPRESSION: Degenerative and postsurgical changes, no acute findings Electronically Signed: Jorge Morse MD at 9:22 EDT ,
== END | disposition home or self-care (01) ==
LOC: RAD 15:08
PROVIDERS: PCP Family Medicine; Referring Provider Anesthesiology Pain Medicine; Visit Provider Anesthesiology Pain Medicine
DX: M54.12 Radiculopathy, cervical region (principal)
CPT/HCPCS: 72040

== ENCOUNTER → 2023-01-12 | Outpatient (CLI) | payer MEDICARE, SELFPAY ==
[2023-01-12 15:46] LABS: Amphetamine Urine VISTA NEGATIVE (<1000 ng/mL); Barbiturate Urine VISTA NEGATIVE (< 200 ng/mL); Benzodiazepine Urine VISTA NEGATIVE (< 200 ng/mL); Cocaine Urine VISTA NEGATIVE (< 300 ng/mL); Ecstacy Urine VISTA NEGATIVE (< 500 ng/mL); Methadone Urine VISTA NEGATIVE (< 300 ng/mL); PCP Urine VISTA NEGATIVE (< 25 ng/mL); THC Urine VISTA NEGATIVE (< 50 ng/mL); Vista UDS pH Range 4
== END | disposition home or self-care (01) ==
LOC: LAB 13:27
PROVIDERS: PCP Family Medicine; Visit Provider Anesthesiology Pain Medicine
DX: F11.20 Opioid dependence, uncomplicated (principal)
CPT/HCPCS: 80307

== ENCOUNTER → 2023-05-05 | Outpatient (CLI) | payer MEDICARE, SELFPAY ==
[2023-05-05 11:48] LABS: Anion Gap 7 (5-15); BUN 38 mg/dL (7-18); BUN/Creat Ratio 18.3 RATIO (10-20); Calcium,Total 8.8 mg/dL (8.5-10.1); Chloride 106 mmol/L (98-107); Creatinine, Serum 2.08 mg/dL (0.70-1.30); EST Glomerular Filtration Rate 34 mL/min (>60); Est Glom Filt Rate - Afr Amer 41 mL/min (>60); Glucose 151 mg/dL (74-106); Potassium 4.3 mmol/L (3.5-5.1); Sodium Level 136 mmol/L (136-145)
[2023-05-05 15:21] LABS: Amphetamine Urine VISTA NEGATIVE (<1000 ng/mL); Barbiturate Urine VISTA NEGATIVE (< 200 ng/mL); Benzodiazepine Urine VISTA NEGATIVE (< 200 ng/mL); Cocaine Urine VISTA NEGATIVE (< 300 ng/mL); Ecstacy Urine VISTA NEGATIVE (< 500 ng/mL); Methadone Urine VISTA NEGATIVE (< 300 ng/mL); PCP Urine VISTA NEGATIVE (< 25 ng/mL); THC Urine VISTA POSITIVE (< 50 ng/mL); Vista UDS pH Range 4
== END | disposition home or self-care (01) ==
PROVIDERS: Anesthesiology Pain Medicine; PCP Family Medicine
DX: F11.20 Opioid dependence, uncomplicated (principal); I25.5 Ischemic cardiomyopathy; I97.89 Other postprocedural complications and disorders of the circulatory system, not elsewhere classified; I25.10 Atherosclerotic heart disease of native coronary artery without angina pectoris; N18.9 Chronic kidney disease, unspecified; E78.5 Hyperlipidemia, unspecified
CPT/HCPCS: 36415; 80048; 80307

== ENCOUNTER → 2023-08-24 | Outpatient (CLI) | payer MEDICARE, SELFPAY ==
[2023-08-24 14:01] LABS: PSA,Total- Diagnostic 2.69 ng/mL (0.0-4.0)
== END | disposition home or self-care (01) ==
LOC: LAB 12:48
PROVIDERS: PCP Family Medicine; Referring Provider Urology; Visit Provider Urology
DX: C61 Malignant neoplasm of prostate (principal)
CPT/HCPCS: 36415; 84153

== ENCOUNTER → 2023-10-12 | Outpatient (CLI) | payer MEDICARE, SELFPAY ==
[2023-10-12 12:19] LABS: Anion Gap 8 (5-15); BUN 55 mg/dL (7-18); BUN/Creat Ratio 22.7 RATIO (10-20); Calcium,Total 8.8 mg/dL (8.5-10.1); Chloride 106 mmol/L (98-107); Creatinine, Serum 2.42 mg/dL (0.70-1.30); EST Glomerular Filtration Rate 28 mL/min (>60); Est Glom Filt Rate - Afr Amer 34 mL/min (>60); Glucose 144 mg/dL (74-106); Potassium 4.5 mmol/L (3.5-5.1); Sodium Level 137 mmol/L (136-145)
== END | disposition home or self-care (01) ==
LOC: LAB 10:46
PROVIDERS: PCP Family Medicine; Visit Provider Internal Medicine Cardiovascular Disease
DX: N18.9 Chronic kidney disease, unspecified (principal)
CPT/HCPCS: 36415; 80048

== ENCOUNTER → 2023-11-16 | Outpatient (CLI) | payer MEDICARE, SELFPAY ==
[2023-11-16 12:10] LABS: AST(SGOT) 17 U/L (15-37); Alanine Aminotransfer ALT/SGPT 20 U/L (16-61); Albumin, Serum 3.5 g/dL (3.2-5.0); Alkaline Phosphatase 82 U/L (45-117); Anion Gap 9 (5-15); BUN 40 mg/dL (7-18); BUN/Creat Ratio 19.9 RATIO (10-20); Calcium,Total 8.7 mg/dL (8.5-10.1); Chloride 104 mmol/L (98-107); Cholesterol 153 mg/dL (200); Creatinine, Serum 2.01 mg/dL (0.70-1.30); EST Glomerular Filtration Rate 35 mL/min (>60); Est Glom Filt Rate - Afr Amer 43 mL/min (>60); Globulin 3.4 g/dL (2.2-4.2); Glucose 144 mg/dL (74-106); High Density Lipoprotein 41 mg/dL; PSA,Total- Diagnostic 2.74 ng/mL (0.0-4.0); Protein, Total 6.9 g/dL (6.4-8.2); Sodium Level 137 mmol/L (136-145); Triglycerides 141 mg/dL; Very Low Density Lipoprotein 28 mg/dL (5-40)
[2023-11-16 15:44] LABS: Hemoglobin A1c 6.6 % (3.8-5.6)
== END | disposition home or self-care (01) ==
PROVIDERS: PCP Family Medicine; Referring Provider Internal Medicine Cardiovascular Disease; Visit Provider Internal Medicine Cardiovascular Disease
DX: E78.5 Hyperlipidemia, unspecified (principal); C61 Malignant neoplasm of prostate; E11.69 Type 2 diabetes mellitus with other specified complication
CPT/HCPCS: 36415; 80053; 80061; 83036; 84153

== ENCOUNTER → 2023-12-02 | Outpatient (CLI) | payer MEDICARE, SELFPAY ==
[2023-12-02 09:58] LABS: Anion Gap 7 (5-15); BUN 39 mg/dL (7-18); Calcium,Total 8.9 mg/dL (8.5-10.1); Chloride 106 mmol/L (98-107); Creatinine, Serum 1.95 mg/dL (0.70-1.30); EST Glomerular Filtration Rate 36 mL/min (>60); Est Glom Filt Rate - Afr Amer 44 mL/min (>60); Glucose 162 mg/dL (74-106); Potassium 3.9 mmol/L (3.5-5.1); Sodium Level 137 mmol/L (136-145)
== END | disposition home or self-care (01) ==
LOC: LAB 08:53
PROVIDERS: PCP Family Medicine; Referring Provider Nurse Practitioner Gerontology; Visit Provider Nurse Practitioner Gerontology
DX: N18.32 Chronic kidney disease, stage 3b (principal)
CPT/HCPCS: 36415; 80048

== ENCOUNTER → 2023-12-15 | Outpatient (CLI) | payer MEDICARE, SELFPAY ==
[2023-12-15 12:06] LABS: Amphetamine Urine VISTA NEGATIVE (<1000 ng/mL); Barbiturate Urine VISTA NEGATIVE (< 200 ng/mL); Benzodiazepine Urine VISTA NEGATIVE (< 200 ng/mL); Cocaine Urine VISTA NEGATIVE (< 300 ng/mL); Ecstacy Urine VISTA NEGATIVE (< 500 ng/mL); Methadone Urine VISTA NEGATIVE (< 300 ng/mL); PCP Urine VISTA NEGATIVE (< 25 ng/mL); THC Urine VISTA POSITIVE (< 50 ng/mL); Vista UDS pH Range 4
== END | disposition home or self-care (01) ==
LOC: LAB 11:04
PROVIDERS: PCP Family Medicine; Referring Provider Anesthesiology Pain Medicine; Visit Provider Anesthesiology Pain Medicine
DX: F11.20 Opioid dependence, uncomplicated (principal)
CPT/HCPCS: 80307

== ENCOUNTER → 2024-04-07 | Outpatient (CLI) | payer MEDICARE, SELFPAY ==
[2024-04-07 15:29] LABS: Hematocrit 43.1 % (40-54); Hemoglobin 13.9 g/dL (13.0-16.5); Mean Corp Hgb Conc 32.3 g/dL (32-36); Mean Corpuscular Volume 99.3 fL (80-94); Mean Platelet Vol. 11.1 fl (6.2-12.0); Platelet Count 101 K/mm3 (150-450); RBC Distribution Width CV 14.8 % (11.6-14.6); RBC Distribution Width SD 53.8 fl (35.1-43.9); Red Blood Count 4.34 M/mm3 (4.6-6.2)
[2024-04-07 16:03] LABS: AST(SGOT) 13 U/L (15-37); Alanine Aminotransfer ALT/SGPT 19 U/L (16-61); Albumin, Serum 3.5 g/dL (3.2-5.0); Alkaline Phosphatase 83 U/L (45-117); Anion Gap 6 (5-15); BUN 43 mg/dL (7-18); BUN/Creat Ratio 20.9 RATIO (10-20); Calcium,Total 8.7 mg/dL (8.5-10.1); Chloride 106 mmol/L (98-107); Creatinine, Serum 2.06 mg/dL (0.70-1.30); EST Glomerular Filtration Rate 34 mL/min (>60); Est Glom Filt Rate - Afr Amer 41 mL/min (>60); Globulin 3.4 g/dL (2.2-4.2); Glucose 276 mg/dL (74-106); Potassium 4.7 mmol/L (3.5-5.1); Protein, Total 6.9 g/dL (6.4-8.2); Sodium Level 136 mmol/L (136-145)
== END | disposition home or self-care (01) ==
LOC: LAB 14:20
PROVIDERS: PCP Family Medicine; Referring Provider Internal Medicine Cardiovascular Disease; Visit Provider Internal Medicine Cardiovascular Disease
DX: I50.22 Chronic systolic (congestive) heart failure (principal)
CPT/HCPCS: 36415; 80053; 85027

== ENCOUNTER 2024-06-16 11:41 | Observation (INO) | payer MEDICARE, SELFPAY ==
[2024-06-16] VITALS (15 sets, daily range): BP systolic 102–180; BP diastolic 61–119; PULSE 70–88; RESP 16–25; TEMP 36.1–37.2; O2SAT 23–97; BMI 28.1; BMI 27.6
--- NOTE | 2024-06-16 11:48 | EKG12_ITS ---
Test Reason : post cp Blood Pressure : */* mmHG Vent. Rate : 82 BPM Atrial Rate : 82 BPM P-R Int : 182 ms QRS Dur : 102 ms QT Int : 394 ms P-R-T Axes : 62 -48 77 degrees QTcB Int : 460 ms Normal sinus rhythm Possible Left atrial enlargement Left axis deviation Incomplete right bundle branch block Nonspecific ST abnormality Abnormal ECG Confirmed by VALENTINA KATZ, URSZULA ([id number]), production editor RAINE GOMES ([id number]) on 06/19/2024 9:19:43 AM Referred By: Gallo Pradhan Confirmed By: URSZULA MONTGOMERY MD
[2024-06-16 12:11] LABS: Absolute Lymphocyte Count 1.06 X10^3/uL (0.83-4.51); Absolute Neutrophil Count 5.1 X10^3/uL (2.0-7.7); Basophil# 0.04 X10^3/uL; Basophil% 0.6 % (0-1); Eosinophil# 0.17 X10^3/uL; Eosinophils% 2.5 % (0-5); Hematocrit 45.7 % (40-54); Hemoglobin 15.2 g/dL (13.0-16.5); Lymphocyte # 1.06 X10^3/ul (0.83-4.51); Lymphocyte % 15.5 % (19-41); Mean Corp Hgb Conc 33.3 g/dL (32-36); Mean Corpuscular Volume 96.2 fL (80-94); Mean Platelet Vol. 10.1 fl (6.2-12.0); Monocyte% 7.3 % (0-10); NRBC Flagged by Analyzer 0 % (0-5); Neutrophil # 5.07 X10^3/uL (2.7-7.7); Platelet Count 128 K/mm3 (150-450); RBC Distribution Width SD 50.1 fl (35.1-43.9); Red Blood Count 4.75 M/mm3 (4.6-6.2); White Blood Count 6.9 K/mm3 (4.4-11.0)
--- NOTE | 2024-06-16 12:13 | RAD_ITS ---
PROCEDURE: CHEST PA AND LATERAL 06/16/2024 REASON FOR EXAM: CHEST PAIN TECHNIQUE: Frontal and lateral views of the chest. COMPARISON: 12/12/2022; FINDINGS: The lungs are clear. No pleural effusion or pneumothorax. The cardiomediastinal silhouette is normal in size. There are calcified mediastinal and hilar lymph nodes. Postoperative changes are present, likely of a prior CABG. No acute osseous or soft tissue abnormality. A spinal stimulator device is noted. Cervical fusion hardware is partially visualized. RAD/Chest PA and Lateral IMPRESSION: 1. No acute cardiopulmonary process. Reading Location: [facility]
[2024-06-16 12:18] LABS: Prothrombin Time (Protime)PT. 13.1 SECONDS (11.7-14.9)
[2024-06-16 13:05] LABS: Anion Gap 15 (5-15); BUN 37 mg/dL (4-19); Calcium,Total 8.9 mg/dL (7.6-11.0); Chloride 104 mmol/L (98-108); Creatinine, Serum 1.75 mg/dL (0.70-1.20); EST Glomerular Filtration Rate 41 (>60); Estimated Creatinine Clearance 44.09 ml/min (50-250); Glucose 160 mg/dL (70-99); Potassium 5.3 mmol/L (3.3-5.1); Sodium Level 135 mmol/L (133-145); Troponin T High Sensitivity 20 ng/L (<=22)
[2024-06-16] MEDS: Aspirin 81 MG TAB.CHEW 324 MG PO (14:27)
[2024-06-16] MEDS: Nitroglycerin SL (ED/IMG/CATH) 0.4 MG TABLET SL ×3 (14:28→14:43)
[2024-06-16 15:01] LABS: Troponin T High Sens 2 HR 19 ng/L (<=22)
[2024-06-16] MEDS: HYDROcodone Bitartrate/Apap 5/325 Tablet PO (15:11)
--- NOTE | 2024-06-16 16:03 | ED.VIS.CHEST ---
HPI History of Present Illness Chief Complaint: Chest Pain Informant: patient Onset/Context/Timing Onset: Days (2) Activity at onset: gradual Timing: Continuous Quality: Positive for Burning Location: Left Chest and - (Left shoulder and left arm) Worsened By: - (Laying flat) Relieved By: Nothing Associated Symptoms: Positive for Dyspnea, Acid Reflux and Palpitations; Negative for Nausea, Vomiting, Diaphoresis, Cough, Fever or Lightheadedness Narrative Narrative: Patient presents with chest pain for the past 2 days. Patient describes it as burning. Patient states it is over the left side of his chest and radiates to his left shoulder and down his left arm. Patient states it is worse when he lays flat. Patient states nothing makes it better. Patient states the pain is similar to the pain he had prior to his last stress test and bypass surgery. Patient states he feels his heart racing at times. Patient admits to some shortness of breath and gastroesophageal reflux symptoms. Prior Similar Symptoms: Yes and With Prior Angina CVD Risk Factors: Positive for Hypertension and Diabetes; Negative for Hypercholesterolemia, Family History 1' </=55 or Smoking PE Risk Factors: Negative for Recent Travel/Surgery, Recent Immobilization, Prior DVT or PE, Cancer or OCP + Smoking + >/=35 PFSH PFSH Medical History Kidney disease Atrial fibrillation Postoperative atrial fibrillation Chronic anticoagulation Leg edema Epistaxis Chronic kidney disease (CKD) Lumbar disc disease with radiculopathy Ocular rosacea CHF (congestive heart failure) CAD (coronary atherosclerotic disease) Chronic pain Hyperlipidemia Prostate cancer Shingles Wears glasses Diabetes Arthritis Injury of head and neck Former smoker Hypertension History of stress test Home Medications ?Medication ?Instructions ?Recorded ?Last Taken ?Type atorvastatin 40 mg tablet 40 mg PO QHS 09/16/23 06/15/24 History aspirin 81 mg tablet,delayed 81 mg PO DAILY 09/28/23 06/15/24 History release (Adult Aspirin Regimen) carvedilol 25 mg tablet (Coreg) 25 mg PO BID #180 tabs 09/28/23 06/15/24 Rx empagliflozin 10 mg tablet 10 mg PO DAILY 09/28/23 06/15/24 History (Jardiance) hydrocodone-acetaminophen 5-325mg 1 tab PO BID PRN pain 09/28/23 06/15/24 History 5mg-325mg metformin 500 mg tablet 1,000 mg PO BID 09/28/23 06/15/24 History nitroglycerin 0.4 mg sublingual 0.4 mg sublingual Q5-15M PRN chest 09/28/23 Unknown History tablet pain amlodipine 2.5 mg tablet 2.5 mg PO DAILY #30 tabs 11/16/23 06/15/24 Rx hydralazine 25 mg tablet 25 mg PO TID #270 tabs 11/16/23 06/15/24 Rx potassium chloride 10 mEq 10 meq PO QODAY 11/16/23 06/15/24 History capsule,extended release sacubitril 49 mg-valsartan 51 mg 1 tab PO BID #180 tabs 04/07/24 06/15/24 Rx tablet (Entresto) torsemide 10 mg tablet 10 mg PO DAILY 06/16/24 06/15/24 History Allergy/AdvReac Type Severity Reaction Status Date / Time morphine AdvReac confusion Verified 06/16/24 11:42 Family History Mother Diabetes Hypertension Sister Heart disease Father Aneurysm Surgical History History of surgery Hx of CABG History of surgery History of knee joint replacement History of cervical spinal surgery Social History Smoking Status: Former smoker how long ago did patient quit smokin years alcohol intake: never substance use type: does not use caffeine: Yes ROS ROS ED Constitutional Constitutional ED: Denies chills or fever(s) Eyes Eyes: Denies blurry vision or change in vision ENT ENT ED: Denies rhinorrhea or sore throat Cardiovascular Cardiovascular: Reports chest pain and palpitations Respiratory/Chest Respiratory/Chest: Reports dyspnea; Denies cough Gastrointestinal Gastrointestinal: Denies abdominal pain, nausea or vomiting Genitourinary Genitourinary ED: Reports hematuria; Denies dysuria Musculoskeletal Musculoskeletal: Reports back pain; Denies neck pain Integumentary Denies abscess or rash Neurologic Neurologic: Denies headache(s) or weakness Allergic/Immunologic Allergic/Immunologic ED: Denies mouth swelling or urticaria EXAM Physical Exam Const Vital Signs: 06/16/24 11:42 06/16/24 12:45 06/16/24 13:20 Temperature 97 F L Temperature Source Temporal Pulse Rate 87 81 Respiratory Rate 16 16 Respiratory Effort Blood Pressure 180/118 H 145/112 H Blood Pressure Mean 138 123 Pulse Ox 97 97 Oxygen Delivery Method Room Air Room Air Room Air 06/16/24 13:20 06/16/24 13:20 06/16/24 14:00 Temperature Temperature Source Pulse Rate 72 72 Respiratory Rate 25 H 20 H Respiratory Effort Normal Non-Labored Blood Pressure 160/105 H 164/117 H Blood Pressure Mean 123 132 Pulse Ox 96 96 Oxygen Delivery Method Room Air Room Air 06/16/24 14:00 06/16/24 14:28 06/16/24 14:36 Temperature Temperature Source Pulse Rate 76 82 83 Respiratory Rate 21 H Respiratory Effort Blood Pressure 164/117 H 166/119 H 150/103 H Blood Pressure Mean 131 Pulse Ox 97 Oxygen Delivery Method 06/16/24 14:43 06/16/24 15:00 06/16/24 15:00 Temperature Temperature Source Pulse Rate 84 76 74 Respiratory Rate 23 H 18 Respiratory Effort Blood Pressure 135/94 H 130/87 H 130/87 H Blood Pressure Mean 101 101 Pulse Ox 95 95 Oxygen Delivery Method Room Air 06/16/24 16:00 06/16/24 16:47 06/16/24 17:00 Temperature 98.9 F Temperature Source Pulse Rate 76 73 72 Respiratory Rate 19 H 23 H 22 H Respiratory Effort Blood Pressure 102/73 102/73 121/94 H Blood Pressure Mean 84 82 103 Pulse Ox 94 23 94 Oxygen Delivery Method Room Air 06/16/24 18:00 Temperature Temperature Source Pulse Rate 70 Respiratory Rate 22 H Respiratory Effort Blood Pressure 153/96 H Blood Pressure Mean 115 Pulse Ox 95 Oxygen Delivery Method Room Air Positive well nourished and well developed Constitutional Narrative: BMI is 28.1 General Appearance ED: well developed HEENT Reports moist mucous membranes Neck supple and no JVD Resp normal respiratory effort and clear to auscultation bilaterally Cardio regular rate and regular rhythm GI soft to palpation, non-tender and non-distended Neuro oriented x3, CN's II-XII intact bilaterally and no sensory deficits noted Sensorium / Orientation: awake and alert Psych mental status grossly normal Heart Score History: Moderately Suspicious ECG: Nonspecific Repolarization Age: >/= 65 years Risk Factors: >/= 3 Risk Factors or History of CAD Troponin: </= Normal Limit Score: 6 MDM MDM MDM Narrative Medical decision making narrative: Differential diagnosis includes cardiac dysrhythmia, cardiac ischemia, pneumonia, pneumothorax, electrolyte abnormality, musculoskeletal pain, and anxiety. EKG will be obtained to assess for cardiac dysrhythmia and cardiac ischemia. Chest x-ray will be obtained to assess for pneumonia and pneumothorax. CBC will be obtained to assess for leukocytosis and anemia. Basic metabolic profile will be obtained to assess for electrolyte abnormality and renal function. High-sensitivity troponin will be obtained to assess for cardiac ischemia. 2-hour repeat high-sensitivity troponin will be obtained to assess for ongoing cardiac ischemia. History & Record Review Additional record(s) reviewed:: Prior labs Lab Data Attestation: I reviewed the patient's lab results. Lab results narrative: CBC was reviewed and was within normal limits. Basic metabolic profile was reviewed. Potassium was 5.3 but this was a hemolyzed specimen. BUN was 37 and creatinine was 1.75. These are consistent with previous results. PT was INR and PTT were reviewed and were within normal limits. High-sensitivity troponin was reviewed and was normal at 20. 2-hour repeat high-sensitivity troponin was reviewed and was normal at 19. Labs: Laboratory Results - last 24 hr 06/16/24 06/16/24 06/16/24 11:59 14:02 16:20 WBC 6.9 RBC 4.75 Hgb 15.2 Hct 45.7 MCV 96.2 H MCH 32.0 MCHC 33.3 RDW Std Deviation 50.1 H RDW Coeff of Jae 14.0 Plt Count 128 L MPV 10.1 Immature Gran % (Auto) 0.100 Neut % (Auto) 74.0 H Lymph % (Auto) 15.5 L [place] % (Auto) 7.3 Eos % (Auto) 2.5 Baso % (Auto) 0.6 Absolute Neuts (auto) 5.1 Absolute Lymphs (auto) 1.06 Nucleated RBC % 0 PT 13.1 INR 1.0 Sodium 135 Potassium 5.3 H Chloride 104 Carbon Dioxide 16.0 L Anion Gap 15 BUN 37 H Creatinine 1.75 H Estim Creat Clear Calc 44.09 L Est GFR (MDRD) Non-Af 41 L BUN/Creatinine Ratio 21.0 H Glucose 160 H Calcium 8.9 Troponin T High Sens 20 Troponin T Hi Sens 2 Hr 19 Troponin T Hi Sens 4Hr 19 Radiography Chest X-Ray - ED: 2 View, Read by ED Physician, Read by Radiologist and No Acute Disease Diagnostic Testing: Clinical Impression(s) from Imaging Studies Chest X-Ray 06/16/24 12:13 IMPRESSION: 1. No acute cardiopulmonary process. Reading Location: [facility] and lateral chest x-ray was obtained. There are 2 views. On my independent interpretation, lung grider are clear. There is normal cardiac silhouette. Bony thorax is normal. There is no acute process noted. Radiologist also interpreted the x-ray and agrees. EKG Initial EKG: Attestation: I personally reviewed and interpreted this EKG as follows: Interpretation: Sinus Rhythm (82), RBBB (Incomplete) and Non-Specific ST Changes Comments: EKG was obtained. On my independent interpretation, it shows a normal sinus rhythm with a rate of 82. AL interval was normal at 182 ms. QRS interval was normal at 102 ms. QTc interval was normal at 460 ms. There is left axis deviation at -48. There is an incomplete right bundle branch block pattern noted. There are nonspecific ST-T wave changes. Prior EKG tracings: available for review Prior: Unchanged (04/07/2024) Management Discussion w/another healthcare provider: Hospitalist (Dr. Castorena) Treatment and Re-Evaluation :: Patient was given aspirin and nitroglycerin here. Patient was advised of his findings. Patient states that the nitroglycerin did not change his pain. Patient has a HEART score of 6. Since the patient has not had a stress test in over a year and a half, I recommended admission to the hospital. Patient is agreeable with this. Case was discussed with the hospitalist. She will admit the patient to her service. Patient understood and was agreeable with the plan. All questions were answered. Discharge Plan Dx/Rx/DC Orders Clinical Impression: Chest pain, Chronic kidney disease (CKD), Hypertension, Diabetes Disposition Disposition: Acute Care Hospital [facility] Discharge Date/Time: 06/16/24 19:07
[2024-06-16 17:01] LABS: Troponin T High Sens 4 HR 19 ng/L (<=22)
--- NOTE | 2024-06-16 18:38 | PCM.HP.STD ---
HPI - General General Date of Admission: 06/16/24 Date of Service: 06/16/24 Chief Complaint: Chest pain HPI Narrative GEORGIE LYNN, is a 69-year-old male with history of CHF, CAD, CKD, paroxysmal atrial fibrillation, diabetes who presented [facility] ED 06/16/2024 due to chest pain. Patient's workup in the ED negative however he reports that the symptoms were the same symptoms that he had before he got open heart surgery in 2022. Not having chest pain at this time but considered high risk and hospitalist contacted for admission. Patient evaluated bedside and does report that he has some pain under his left arm and to the left-sided chest and he also feels it across his back, not reproducible and does not necessarily change with movement but is worse when his blood pressure is elevated. He denies any shortness of breath, reports that the symptoms improved with nitro earlier. Does note that before he had his CABG in 2022 the symptoms were very similar [facility] Medical History (Updated 06/16/24 @ 18:11 by Andreea Jacob) Arthritis Atrial fibrillation CAD (coronary atherosclerotic disease) CHF (congestive heart failure) Chronic anticoagulation Chronic kidney disease (CKD) Chronic pain Diabetes Epistaxis Former smoker History of stress test Hyperlipidemia Hypertension Injury of head and neck Kidney disease Leg edema Lumbar disc disease with radiculopathy Ocular rosacea Postoperative atrial fibrillation Prostate cancer Shingles Wears glasses Home Medications ?Medication ?Instructions ?Recorded ?Last Taken ?Type atorvastatin 40 mg tablet 40 mg PO QHS 09/16/23 06/15/24 History aspirin 81 mg tablet,delayed 81 mg PO DAILY 09/28/23 06/15/24 History release (Adult Aspirin Regimen) carvedilol 25 mg tablet (Coreg) 25 mg PO BID #180 tabs 09/28/23 06/15/24 Rx empagliflozin 10 mg tablet 10 mg PO DAILY 09/28/23 06/15/24 History (Jardiance) hydrocodone-acetaminophen 5-325mg 1 tab PO BID PRN pain 09/28/23 06/15/24 History 5mg-325mg metformin 500 mg tablet 1,000 mg PO BID 09/28/23 06/15/24 History nitroglycerin 0.4 mg sublingual 0.4 mg sublingual Q5-15M PRN chest 09/28/23 Unknown History tablet pain amlodipine 2.5 mg tablet 2.5 mg PO DAILY #30 tabs 11/16/23 06/15/24 Rx hydralazine 25 mg tablet 25 mg PO TID #270 tabs 11/16/23 06/15/24 Rx potassium chloride 10 mEq 10 meq PO QODAY 11/16/23 06/15/24 History capsule,extended release sacubitril 49 mg-valsartan 51 mg 1 tab PO BID #180 tabs 04/07/24 06/15/24 Rx tablet (Entresto) torsemide 10 mg tablet 10 mg PO DAILY 06/16/24 06/15/24 History Allergy/AdvReac Type Severity Reaction Status Date / Time morphine AdvReac confusion Verified 06/16/24 11:42 Family History Mother Diabetes Hypertension Sister Heart disease Father Aneurysm Surgical History History of cervical spinal surgery History of knee joint replacement History of surgery History of surgery Hx of CABG Social History Smoking Status: Former smoker how long ago did patient quit smokin years alcohol intake: never substance use type: does not use caffeine: Yes ROS ROS Narrative General: Denies fever/chills HENT: Denies headache, denies stuffy nose, denies sore throat EYES: Denies changes in vision Resp: Denies cough, denies shortness of breath Cardiac: Has pain under left arm towards chest and into the back GI: Denies abdominal pain, denies changes in bowel, denies nausea/vomiting : Denies changes in urination Extremity: Denies swelling MSK: Denies weakness Neuro: Denies any numbness/tingling Heme: Denies any bleeding or bruising Skin: Denies rashes Psychiatric: No complaints voiced Vital Signs Vital Signs Vital Signs: 06/16/24 11:42 06/16/24 12:45 06/16/24 13:20 Temperature 97 F L Temperature Source Temporal Pulse Rate 87 81 Respiratory Rate 16 16 Respiratory Effort Blood Pressure 180/118 H 145/112 H Blood Pressure Mean 138 123 Pulse Ox 97 97 Oxygen Delivery Method Room Air Room Air Room Air 06/16/24 13:20 06/16/24 13:20 06/16/24 14:00 Temperature Temperature Source Pulse Rate 72 72 Respiratory Rate 25 H 20 H Respiratory Effort Normal Non-Labored Blood Pressure 160/105 H 164/117 H Blood Pressure Mean 123 132 Pulse Ox 96 96 Oxygen Delivery Method Room Air Room Air 06/16/24 14:00 06/16/24 14:28 06/16/24 14:36 Temperature Temperature Source Pulse Rate 76 82 83 Respiratory Rate 21 H Respiratory Effort Blood Pressure 164/117 H 166/119 H 150/103 H Blood Pressure Mean 131 Pulse Ox 97 Oxygen Delivery Method 06/16/24 14:43 06/16/24 15:00 06/16/24 15:00 Temperature Temperature Source Pulse Rate 84 76 74 Respiratory Rate 23 H 18 Respiratory Effort Blood Pressure 135/94 H 130/87 H 130/87 H Blood Pressure Mean 101 101 Pulse Ox 95 95 Oxygen Delivery Method Room Air 06/16/24 16:00 06/16/24 16:47 06/16/24 17:00 Temperature 98.9 F Temperature Source Pulse Rate 76 73 72 Respiratory Rate 19 H 23 H 22 H Respiratory Effort Blood Pressure 102/73 102/73 121/94 H Blood Pressure Mean 84 82 103 Pulse Ox 94 23 94 Oxygen Delivery Method Room Air 06/16/24 18:00 Temperature Temperature Source Pulse Rate 70 Respiratory Rate 22 H Respiratory Effort Blood Pressure 153/96 H Blood Pressure Mean 115 Pulse Ox 95 Oxygen Delivery Method Room Air Weight Weight: 88.904 kg Body Mass Index (BMI) 28.1 Physical Exam Narrative General: Alert, oriented, no apparent distress HEENT: Atraumatic, normocephalic Eyes: Anicteric, normal conjunctiva, extraocular movements grossly intact Neck: Supple Respiratory: Clear to auscultation bilaterally, normal respiratory effort Cardiovascular: Regular rate and rhythm GI: Soft, nontender, nondistended Extremities: No edema Musculoskeletal: Moving all extremities Neuro: No overt focal neurological deficits Skin: No rashes appreciated Psych: Cooperative Results Lab / Micro Data 06/16/24 11:59 06/16/24 11:59 Labs: Laboratory Results - last 24 hr 06/16/24 11:59: WBC 6.9, RBC 4.75, Hgb 15.2, Hct 45.7, MCV 96.2 H, MCH 32.0, MCHC 33.3, RDW Std Deviation 50.1 H, RDW Coeff of Jae 14.0, Plt Count 128 L, MPV 10.1, Immature Gran % (Auto) 0.100, Neut % (Auto) 74.0 H, Lymph % (Auto) 15.5 L, [place] % (Auto) 7.3, Eos % (Auto) 2.5, Baso % (Auto) 0.6, Absolute Neuts (auto) 5.1, Absolute Lymphs (auto) 1.06, Nucleated RBC % 0, PT 13.1, INR 1.0, Sodium 135, Potassium 5.3 H, Chloride 104, Carbon Dioxide 16.0 L, Anion Gap 15, BUN 37 H, Creatinine 1.75 H, Estim Creat Clear Calc 44.09 L, Est GFR (MDRD) Non-Af 41 L, BUN/Creatinine Ratio 21.0 H, Glucose 160 H, Calcium 8.9, Troponin T High Sens 20 06/16/24 14:02: Troponin T Hi Sens 2 Hr 19 06/16/24 16:20: Troponin T Hi Sens 4Hr 19 Imaging Radiology Impression Chest X-Ray 06/16/24 12:13 IMPRESSION: 1. No acute cardiopulmonary process. [facility] Assessment & Plan Assessment/Plan (1) Chest pain: PLAN: Plan #Chest pain -EKG with normal sinus rhythm, left axis deviation -Trop 19 x 2 -Admit to telemetry -Echo ordered -Aspirin -Statin -Lipid panel in AM -Stress test ordered for AM # History of coronary artery disease -With previous CABG -Aspirin, statin, beta-aby # History of ischemic cardiomyopathy -History of EF of 40 to 45% previously -Repeating echo -Continue home medications -Daily weights -I's and O's # CKD stage III b -Appears to be at baseline -Avoid nephrotoxic agents -Daily BMPs #Hypertension -Continue home medications # Chronic pain -On home [place], managed by Dr. Degroot -Continue home regimen #Type 2 diabetes mellitus -Glucose checks and sliding scale insulin -Holding home metformin and Jardiance #DVT ppx: Heparin subcu Lisa Castorena MD Charges/Coding Visit Charges Inpatient E&M: 82815 Init Hosp L2
--- NOTE | 2024-06-16 19:33 | CASEMGMT ---
Care Management Face to Face with patient for initial transition planning/care coordination assessment in the ED. This gag writer introduced self and role at [facility]. Patient alert and oriented. Patient willing to participate in assessment, though patient stated being frustrated with being admitted observation status. Care providers, pharmacy, and demographics verified. Admitting Diagnosis: chest pain (observation status) Other diagnosis history: CHF, CAD, CKD, paroxysmal a fib PCP: Saad Alamo Specialists: Freeman, cardiology. Zane, pain management. Preferred Pharmacy: [facility] in [place] Insurance: [employer] Medicare PPO Prescription Benefit: yes Living Will/HPOA: patient reports it is , Ambar, but patient denied anyone being able to bring in for [facility] to have a copy. LNOK: , daughter, and son. Living Arrangements: lives with in a 1 story home with 8 steps to enter. Patient reports being independent at baseline with all ADLs/IADLs. Transportation: patient drives DME: none HHC: stated having some after open heart surgery, but could not recall who it was through. SNF/Rehab: none Community Resources: none Patient goals: Patient wishes to discharge home, denies need for home health care at this time. Patient denies any further needs or concerns at this time. Disposition Plan: admission to acute; RN CM/SW to follow for discharge planning needs that may arise. Cecille Campoverde, CLIN TECH, MACHINE BRUSHER
--- NOTE | 2024-06-16 19:46 | ECHOD_ITS ---
Reason For Study Reason For Study: Chest Pain Procedure This was a 2D Doppler, Color Flow transthoracic echocardiogram. Exam performed in department. Left Ventricle Mildly dilated left ventricle. The estimated ejection fraction is 50-55% %. Right Ventricle Normal right ventricle. Atria Normal left atrium. The left atrium is moderately enlarged. The right atrium is moderately enlarged. Bubble contrast study is positive for PFO. Mitral Valve The mitral valve is structurally normal. No prolapse or stenosis seen. Trivial mitral valve insufficiency. Tricuspid Valve Normal tricuspid valve. Mild tricuspid valve insufficiency. Aortic Valve Trisinus/trileaflet aortic valve. Pulmonic Valve The pulmonic valve is not well visualized. Great Vessels The aortic root is not well visualized. Pericardium/Pleural No pericardial effusion. Medication Performed a rapid injection of agitated mix of 9 cc saline and 1cc air to assess for atrial septal defect. MMode/2D Measurements & Calculations LVIDd: 5.2 cm IVSd: 1.4 cm LAV(MOD- bp): 83.4 ml LVIDs: 3.8 cm LVPWd: 1.2 cm RVDd: 3.8 cm FS: 26.6 % LAV(MOD- bp) Indexed: 40.4 ml/m2 LAV(MOD- sp2): 83.6 ml LAV(MOD- sp4): 79.6 ml SV(MOD-sp4): 52.1 ml SV(sp4- el): 55.8 ml LVAd ap4: 31.6 cm2 LVLd ap4: 8.1 cm SI(MOD-sp4): 25.2 ml/m2 EDV(MOD-sp4): 101.4 ml EDV(sp4-el): 105.3 ml LVAs ap4: 20.8 cm2 LVLs ap4: 7.4 cm ESV(MOD-sp4): 49.3 ml ESV(sp4-el): 49.5 ml EF(MOD-sp4): 51.4 % EF(sp4-el): 53.0 % LA dimension(2D): 5.4 cm LA A4 area: 24.7 cm2 RA A4 area: 25.2 cm2 TAPSE: 1.8 cm Time Measurements MV dec time: 0.26 sec Doppler Measurements & Calculations MV E max miguel: 49.5 cm/sec Lat Peak E' Miguel: 7.1 cm/sec Med Peak E' Miguel: 7.0 cm/sec MV A max miguel: 98.0 cm/sec E/E' lat: 7.0 E/E' med: 7.1 MV E/A: 0.51 MV V2 max: 106.8 cm/sec MV P1/2t max miguel: 43.7 cm/sec Ao V2 max: 160.2 cm/sec MV max P.6 mmHg MV P1/2t: 81.0 msec Ao max P.3 mmHg MV V2 mean: 50.9 cm/sec MV dec slope: 157.9 cm/sec2 Ao V2 mean: 94.7 cm/sec MV mean P.3 mmHg MVA(P1/2t): 2.7 cm2 Ao mean P.3 mmHg MV V2 VTI: 21.2 cm Ao V2 VTI: 26.6 cm AV (velocity ratio): 0.79 LV V1 max: 97.2 cm/sec PA V2 max: 99.0 cm/sec TR max miguel: 293.1 cm/sec LV V1 max P.8 mmHg TR max P.4 mmHg LV V1 mean P.9 mmHg LV V1 mean: 63.5 cm/sec LV V1 VTI: 20.9 cm ECHO/Echo Complete Interpretation Summary The estimated ejection fraction is 50-55% Mild LV systolic dysfunction Apical and distal septal hypokinesia Biatrial enlargement Mild MR Bubble study performed which is positive With PFO. Ordering Physician: Raffaele^Lisa^^^ Referring Physician: Gallo Pradhan Performed By: Lexx Nava RCS
[2024-06-16] MEDS: hydrALAZINE 25 MG Tablet PO (20:42)
[2024-06-16] MEDS: Atorvastatin Calcium 40 MG Tablet PO (20:42)
[2024-06-16] MEDS: SACUBITRIL/VALSARTAN 49-51 MG TABLET 1 EACH PO (20:42)
[2024-06-16] MEDS: Heparin Injection (Vial) 5,000 UNIT/ML VIAL 5000 UNIT SC (20:49)
[2024-06-16 21:09] LABS: Bedside Glucose 135 mg/dL (74-106)
--- NOTE | 2024-06-16 22:00 | EKG12_ITS ---
Test Reason : CP ADMIT Blood Pressure : */* mmHG Vent. Rate : 73 BPM Atrial Rate : 73 BPM P-R Int : 178 ms QRS Dur : 102 ms QT Int : 400 ms P-R-T Axes : 60 -52 83 degrees QTcB Int : 440 ms Sinus rhythm with occasional AV dual-paced complexes Possible Left atrial enlargement Left axis deviation Septal infarct , age undetermined Abnormal ECG When compared with ECG of 16-Jun-2024 11:50, MANUAL COMPARISON REQUIRED DATA IS UNCONFIRMED Confirmed by VALENTINA KATZ, URSZULA ([id number]), video editor RAINE GOMES ([id number]) on 06/19/2024 11:44:23 AM Referred By: Gallo Pradhan Confirmed By: URSZULA MONTGOMERY MD
[2024-06-17] MEDS: HYDROcodone Bitartrate/Apap 5/325 Tablet PO ×2 (00:08→09:44)
[2024-06-17] MEDS: MELATONIN 3 MG TABLET PO (00:08)
[2024-06-17 03:25] VITALS: BP 105/81; PULSE 87; RESP 18; TEMP 36.8; O2SAT 95
--- NOTE | 2024-06-17 05:55 | EKG12_ITS ---
Test Reason : AM Blood Pressure : */* mmHG Vent. Rate : 84 BPM Atrial Rate : 84 BPM P-R Int : 200 ms QRS Dur : 108 ms QT Int : 388 ms P-R-T Axes : 59 -51 79 degrees QTcB Int : 458 ms Normal sinus rhythm Possible Left atrial enlargement Left axis deviation Incomplete right bundle branch block Inferior infarct , age undetermined Abnormal ECG When compared with ECG of 16-Jun-2024 19:33, MANUAL COMPARISON REQUIRED DATA IS UNCONFIRMED Confirmed by VALENTINA KATZ, URSZULA ([id number]), photography editor RAINE GOMES ([id number]) on 06/19/2024 11:44:14 AM Referred By: Gallo Pradhan Confirmed By: URSZULA MONTGOMERY MD
[2024-06-17 06:00] VITALS: BMI 28.0
[2024-06-17 06:04] LABS: Anion Gap 14 (5-15); BUN 35 mg/dL (4-19); BUN/Creat Ratio 21.7 RATIO (10-20); Calcium,Total 8.8 mg/dL (7.6-11.0); Carbon Dioxide 16.9 mmol/L (21.0-32.0); Chloride 109 mmol/L (98-108); Cholesterol 129 mg/dL (<=200); Creatinine, Serum 1.63 mg/dL (0.70-1.20); EST Glomerular Filtration Rate 45 (>60); Estimated Creatinine Clearance 43.54 ml/min (50-250); Glucose 116 mg/dL (70-99); High Density Lipoprotein 40 mg/dL; Low Density Lipoprotein Calc. 66 mg/dL; Potassium 4.1 mmol/L (3.3-5.1); Sodium Level 140 mmol/L (133-145); Triglycerides 113 mg/dL; Very Low Density Lipoprotein 23 mg/dL (5-40); cholesterol:hdl ratio screen 3.19
[2024-06-17 06:19] VITALS: BP 100/85; PULSE 81; RESP 18; TEMP 36.5; O2SAT 95
[2024-06-17 06:23] VITALS: PULSE 81
[2024-06-17] MEDS: SACUBITRIL/VALSARTAN 49-51 MG TABLET 1 EACH PO (06:23)
[2024-06-17] MEDS: hydrALAZINE 25 MG Tablet PO (06:23)
[2024-06-17] MEDS: Aspirin E.C. 81 MG Tablet PO (06:23)
[2024-06-17 06:46] LABS: Bedside Glucose 141 mg/dL (74-106)
[2024-06-17 07:37] LABS: Absolute Lymphocyte Count 1.21 X10^3/uL (0.83-4.51); Absolute Neutrophil Count 3.9 X10^3/uL (2.0-7.7); Basophil# 0.03 X10^3/uL; Basophil% 0.5 % (0-1); Eosinophil# 0.22 X10^3/uL; Eosinophils% 3.7 % (0-5); Hematocrit 43.8 % (40-54); Hemoglobin 14.5 g/dL (13.0-16.5); Lymphocyte # 1.21 X10^3/ul (0.83-4.51); Lymphocyte % 20.2 % (19-41); Mean Corp Hgb Conc 33.1 g/dL (32-36); Mean Corpuscular Hgb 31.9 pg (27.0-32.0); Mean Corpuscular Volume 96.5 fL (80-94); Mean Platelet Vol. 10.7 fl (6.2-12.0); Monocyte# 0.62 X10^3/uL; Monocyte% 10.4 % (0-10); NRBC Flagged by Analyzer 0 % (0-5); Neutrophil # 3.88 X10^3/uL (2.7-7.7); Neutrophil % 64.9 % (47-70); Platelet Count 143 K/mm3 (150-450); Red Blood Count 4.54 M/mm3 (4.6-6.2)
--- NOTE | 2024-06-17 08:05 | PN.HOSP_ITS ---
Reason for Visit Reason for Visit: Diagnoses Chest pain, unspecified (06/16/24) Subjective Subjective No chest pain. Complains of pain in neck and back. Objective Data Objective Data Vital Signs: Vital Signs Temp Pulse Resp BP Pulse Ox O2 Del Method 36.5 C L 81 18 100/85 H 95 Room Air 06/17/24 06:19 06/17/24 06:23 06/17/24 06:19 06/17/24 06:19 06/17/24 06:19 06/17/24 06:19 Oxygen Delivery Method Room Air Weight: 88.6 kg Body Mass Index (BMI) 28.0 Lab / Micro Data 06/17/24 06:39 06/17/24 04:32 Labs: Laboratory Results - last 24 hr 06/16/24 11:59: WBC 6.9, RBC 4.75, Hgb 15.2, Hct 45.7, MCV 96.2 H, MCH 32.0, MCHC 33.3, RDW Std Deviation 50.1 H, RDW Coeff of Jae 14.0, Plt Count 128 L, MPV 10.1, Immature Gran % (Auto) 0.100, Neut % (Auto) 74.0 H, Lymph % (Auto) 15.5 L, [place] % (Auto) 7.3, Eos % (Auto) 2.5, Baso % (Auto) 0.6, Absolute Neuts (auto) 5.1, Absolute Lymphs (auto) 1.06, Nucleated RBC % 0, PT 13.1, INR 1.0, Sodium 135, Potassium 5.3 H, Chloride 104, Carbon Dioxide 16.0 L, Anion Gap 15, BUN 37 H, Creatinine 1.75 H, Estim Creat Clear Calc 44.09 L, Est GFR (MDRD) Non-Af 41 L , BUN/Creatinine Ratio 21.0 H, Glucose 160 H, Calcium 8.9, Troponin T High Sens 06/16/24 14:02: Troponin T Hi Sens 2 Hr 06/16/24 16:20: Troponin T Hi Sens 4Hr 06/16/24 20:45: POC Glucose 135 H 06/17/24 04:32: WBC Cancelled, Corrected WBC Cancelled, RBC Cancelled, Hgb Cancelled, Hct Cancelled, MCV Cancelled, MCH Cancelled, MCHC Cancelled, RDW Std Deviation Cancelled, RDW Coeff of Jae Cancelled, Plt Count Cancelled, MPV Cancelled, Immature Gran % (Auto) Cancelled, Neut % (Auto) Cancelled, Lymph % (Auto) Cancelled, [place] % (Auto) Cancelled, Eos % (Auto) Cancelled, Baso % (Auto) Cancelled, Absolute Neuts (auto) Cancelled, Absolute Lymphs (auto) Cancelled, Total Counted Cancelled, Neutrophils % (Manual) Cancelled, Band Neutrophils % Cancelled, Lymphocytes % (Manual) Cancelled, Monocytes % (Manual) Cancelled, Eosinophils % (Manual) Cancelled, Basophils % (Manual) Cancelled, Metamyelocytes % Cancelled, Myelocytes % Cancelled, Promyelocytes % Cancelled, Blast Cells % Cancelled, Plasma Cell % (Manual) Cancelled, Other Cells % Cancelled, Nucleated RBC % Cancelled, Nucleated RBCs/100 WBC Cancelled, Differential Comment Cancelled, Diff Path Review Cancelled, Hypersegmented Neuts Cancelled, Atypical Lymphocytes Cancelled, Reactive Lymphocytes Cancelled, Smudge Cells Cancelled, Toxic Granulation Cancelled, Toxic Vacuolation Cancelled, Dohle Bodies Cancelled, Estelle Rods Cancelled, Platelet Estimate Cancelled, Plt Morphology Comment Cancelled, RBC Morphology Cancelled 06/17/24 04:32: RBC Morphology Cancelled, Polychromasia Cancelled, Hypochromasia Cancelled, Basophilic Stippling Cancelled, Anisocytosis Cancelled, Microcytosis Cancelled, Macrocytosis Cancelled, Spherocytes Cancelled, Sickle Cells Cancelled, Target Cells Cancelled, Tear Drop Cells Cancelled, Ovalocytes Cancelled, Stomatocytes Cancelled, [place] Bodies Cancelled, Megha Cells Cancelled, Bite Cells Cancelled, Crenated Cell Cancelled, Acanthocytes (Spur) Cancelled, Rouleaux Cancelled, Schistocytes Cancelled, Sodium 140, Potassium 4.1, Chloride 109 H, Carbon Dioxide 16.9 L, Anion Gap 14, BUN 35 H, Creatinine 1.63 H, Estim Creat Clear Calc 43.54 L, Est GFR (MDRD) Non-Af 45 L, B UN/Creatinine Ratio 21.7 H, Glucose 116 H, Calcium 8.8, Triglycerides 113, Cholesterol 129, LDL Cholesterol, Calc 66, VLDL Cholesterol 23, HDL Cholesterol 40, Cholesterol/HDL Ratio 3.19, TSH 1.050 06/17/24 06:26: POC Glucose 141 H 06/17/24 06:39: WBC 6.0, RBC 4.54 L, Hgb 14.5, Hct 43.8, MCV 96.5 H, MCH 31.9, MCHC 33.1, RDW Std Deviation 50.0 H, RDW Coeff of Jae 14.0, Plt Count 143 L, MPV 10.7, Immature Gran % (Auto) 0.300, Neut % (Auto) 64.9, Lymph % (Auto) 20.2, M grazyna % (Auto) 10.4 H, Eos % (Auto) 3.7, Baso % (Auto) 0.5, Absolute Neuts (auto) 3.9, Absolute Lymphs (auto) 1.21, Nucleated RBC % 0 Radiography Diagnostic Testing: Radiology Impression Chest X-Ray 06/16/24 12:13 IMPRESSION: 1. No acute cardiopulmonary process. Reading Location: [facility] Physical Exam Const alert and no apparent distress Constitutional Narrative: Up in room initially pacing. He then lies down on his bed sideways. HEENT head/scalp atraumatic and moist oral mucous membranes Assessment & Plan Assessment/Plan (1) Chest pain: PLAN: Troponins negative Stress test pending PLAN: Plan Chronic conditions: * History of coronary artery disease-With previous CABG-Aspirin, statin, beta- aby * History of ischemic cardiomyopathy-History of EF of 40 to 45% previously- Repeating echo-Continue home medications-Daily weights-I's and O's * CKD stage III b-Appears to be at baseline-Avoid nephrotoxic agents-Daily BMPs * Hypertension-Continue home medications * Chronic pain-On home [place], managed by Dr. Degroot-Continue home regimen * Type 2 diabetes mellitus-Glucose checks and sliding scale insulin-Holding home metformin and Jardiance VTE prophylaxis: SQ heparin. Charges/Coding Visit Charges Inpatient E&M: 01446 Subs Hosp L1
[2024-06-17] MEDS: Acetaminophen 325 MG Tablet 650 MG PO (09:44)
[2024-06-17] MEDS: Carvedilol 25 MG Tablet PO (09:46)
[2024-06-17] MEDS: amLODIPine 2.5 MG Tablet PO (09:46)
[2024-06-17] MEDS: Furosemide 20 MG Tablet PO (09:46)
[2024-06-17 09:50] VITALS: BP 134/80; PULSE 80; RESP 18; TEMP 36.4; O2SAT 97
[2024-06-17] MEDS: Insulin Lispro 100 UNIT/ML INSULN.PEN SC (12:00)
[2024-06-17 12:15] LABS: Bedside Glucose 290 mg/dL (74-106)
--- NOTE | 2024-06-17 12:44 | DCINST_ITS ---
Discharge Instructions Diet Discharge Diet: Low fat / Low cholesterol DC O2, CPAP, BIPAP needs Home O2 Discharge instructions: No Follow Up Care Test Results: Test results from this visit will be discussed in further detail at your follow- up appointment, if applicable. Discharge Plan Admission Admit Date/Time: 06/16/24 18:38 Primary Reason for Your Visit: chest pain Attending Provider: Gallo Vu Primary Care Provider: Saad Alamo Consulting Providers: Lisa Castorena Discharge Orders/Prescriptions Prescriptions: Continued atorvastatin 40 mg tablet 40 mg PO QHS aspirin [Adult Aspirin Regimen] 81 mg tablet,delayed release (DR/EC) 81 mg PO DAILY hydrocodone-acetaminophen 5-325 mg tablet 1 tab PO BID PRN (Reason: pain) Jardiance 10 mg tablet 10 mg PO DAILY nitroglycerin 0.4 mg tablet, sublingual 0.4 mg sublingual Q5-15M PRN (Reason: chest pain) carvedilol [Coreg] 25 mg tablet 25 mg PO BID Qty: 180 3RF Rx Instructions: must administer with a meal/food hydralazine 25 mg tablet 25 mg PO TID Qty: 270 3RF amlodipine 2.5 mg tablet 2.5 mg PO DAILY Qty: 30 11RF sacubitril-valsartan [Entresto] 49-51 mg tablet 1 tab PO BID Qty: 180 3RF metformin 500 mg tablet 1,000 mg PO BID torsemide 10 mg tablet 10 mg PO DAILY potassium chloride 10 mEq capsule, extended release 10 meq PO QODAY Referrals / Follow Up: Saad Alamo MD [Primary Care Provider] - Within 2 Weeks Disposition Disposition (needs filled in before D/C Order can be placed): Home, Self Care
--- NOTE | 2024-06-17 12:49 | STRESSREP_ITS ---
Stress Test Report Pharmacologic/Lexiscan myocardial perfusion stress test. Indication; 69-year-old patient, with history of CAD S/p CABG 2022 Prostate cancer Atrial fibrillation Ischemic cardiomyopathy with CHF presentation symptoms of chest pain Stress protocol: Resting EKG demonstrates. Normal sinus rhythm. Q waves noted in the septal leads V1 V2 0.4 mg of regadenoson was infused per usual protocol followed by rapid intravenous saline flush injection continuous EKG monitoring was performed. The maximum heart rate attained was 99 bpm which was 66% of maximum predicted heart . Stress EKG showed[, no significant change from the resting EKG, with maximum heart rate of 99 bpm. Arrhythmia: Infrequent PVC Symptoms: Patient had no symptoms of chest pain Blood pressure at rest: 164/96 mmHg, blood pressure at the end of stress: 164/96 mmHg Myocardial perfusion protocol. [12 mCi ]of Technetium 99m Sestamibi was injected at rest. [ 0.4 mg ]of Regadeno son was infused per usual protocol peak infusion[36 mCi ]of Technetium 99m sestamibi was injected. Stress images were obtained stress and rest images were reconstructed and compared in the short axis vertical and horizontal long axis. Gated images were also obtained Perfusion SPECT analysis: Review of the images demonstrate normal uptake of sestamibi at rest, post stress images demonstrate similar uptake of sestamibi to the resting images, homogeneous tracer uptake With evidence of fixed apical and septal defect consistent with previous scar/myocardial infarction. No reversible myocardial ischemia Gated SPECT analysis: The gated ejection fraction is 60% Mild apical and septal hypokinesia Conclusion: Fixed apical and septal defect consistent with previous infarction No reversible myocardial ischemia noted Apical and septal mild hypokinesia Patient has no symptoms of chest pain to report. At time of stress Reza Mitchell MD,FACC,[facility] [place]
--- NOTE | 2024-06-17 13:08 | DS.PCM_ITS ---
Providers Date of Admission: 06/16/24 Primary Care Physician: Dr. Saad Alamo MD Reason For Visit: CHEST PAIN RULE OUT Diagnosis Discharge Diagnosis (1) Chest pain: Status: Acute Code(s): R07.9 - Chest pain, unspecified Plan: Troponins negative Stress test pending Plan Chronic conditions: * History of coronary artery disease-With previous CABG-Aspirin, statin, beta- aby * History of ischemic cardiomyopathy-History of EF of 40 to 45% previously- Repeating echo-Continue home medications-Daily weights-I's and O's * CKD stage III b-Appears to be at baseline-Avoid nephrotoxic agents-Daily BMPs * Hypertension-Continue home medications * Chronic pain-On home [place], managed by Dr. Degroot-Continue home regimen * Type 2 diabetes mellitus-Glucose checks and sliding scale insulin-Holding home metformin and Jardiance VTE prophylaxis: SQ heparin. Medications at Discharge Home Medications atorvastatin 40 mg tablet 40 mg PO QHS 09/16/23 aspirin 81 mg tablet,delayed release (Adult Aspirin Regimen) 81 mg PO DAILY 09/28/23 carvedilol 25 mg tablet (Coreg) 25 mg PO BID #180 tabs 09/28/23 empagliflozin 10 mg tablet (Jardiance) 10 mg PO DAILY 09/28/23 hydrocodone-acetaminophen 5-325mg 5mg-325mg 1 tab PO BID PRN pain 09/28/23 metformin 500 mg tablet 1,000 mg PO BID 09/28/23 nitroglycerin 0.4 mg sublingual tablet 0.4 mg sublingual Q5-15M PRN chest pain 09/28/23 amlodipine 2.5 mg tablet 2.5 mg PO DAILY #30 tabs 11/16/23 hydralazine 25 mg tablet 25 mg PO TID #270 tabs 11/16/23 potassium chloride 10 mEq capsule,extended release 10 meq PO QODAY 11/16/23 sacubitril 49 mg-valsartan 51 mg tablet (Entresto) 1 tab PO BID #180 tabs 04/07/24 torsemide 10 mg tablet 10 mg PO DAILY 06/16/24 Hospital Course Operations None Procedures Stress test Summary of Care Provided Hospital Course: Patient presents with chest pain. His troponin series was negative. Stress test showed fixed apical and septal defect consistent with previous infarction. No reversible defects noted. Patient had non-cardiac chest pain. Weight / BMI Weight Weight: 88.6 kg Body Mass Index (BMI) 28.0 ABG / Lab / Microbiology Data 06/17/24 06:39 06/17/24 04:32 Laboratory: Laboratory Results - last 24 hr 06/16/24 14:02: Troponin T Hi Sens 2 Hr 19 06/16/24 16:20: Troponin T Hi Sens 4Hr 19 06/16/24 20:45: POC Glucose 135 H 06/17/24 04:32: WBC Cancelled, Corrected WBC Cancelled, RBC Cancelled, Hgb Cancelled, Hct Cancelled, MCV Cancelled, MCH Cancelled, MCHC Cancelled, RDW Std Deviation Cancelled, RDW Coeff of Jae Cancelled, Plt Count Cancelled, MPV Cancelled, Immature Gran % (Auto) Cancelled, Neut % (Auto) Cancelled, Lymph % (Auto) Cancelled, [place] % (Auto) Cancelled, Eos % (Auto) Cancelled, Baso % (Auto) Cancelled, Absolute Neuts (auto) Cancelled, Absolute Lymphs (auto) Cancelled, Total Counted Cancelled, Neutrophils % (Manual) Cancelled, Band Neutrophils % Cancelled, Lymphocytes % (Manual) Cancelled, Monocytes % (Manual) Cancelled, Eosinophils % (Manual) Cancelled, Basophils % (Manual) Cancelled, Metamyelocytes % Cancelled, Myelocytes % Cancelled, Promyelocytes % Cancelled, Blast Cells % Cancelled, Plasma Cell % (Manual) Cancelled, Other Cells % Cancelled, Nucleated RBC % Cancelled, Nucleated RBCs/100 WBC Cancelled, Differential Comment Cancelled, Diff Path Review Cancelled, Hypersegmented Neuts Cancelled, Atypical Lymphocytes Cancelled, Reactive Lymphocytes Cancelled, Smudge Cells Cancelled, Toxic Granulation Cancelled, Toxic Vacuolation Cancelled, Dohle Bodies Cancelled, Estelle Rods Cancelled, Platelet Estimate Cancelled, Plt Morphology Comment Cancelled, RBC Morphology Cancelled 06/17/24 04:32: RBC Morphology Cancelled, Polychromasia Cancelled, Hypochromasia Cancelled, Basophilic Stippling Cancelled, Anisocytosis Cancelled, Microcytosis Cancelled, Macrocytosis Cancelled, Spherocytes Cancelled, Sickle Cells Cancelled, Target Cells Cancelled, Tear Drop Cells Cancelled, Ovalocytes Cancelled, Stomatocytes Cancelled, [place] Bodies Cancelled, Megha Cells Cancelled, Bite Cells Cancelled, Crenated Cell Cancelled, Acanthocytes (Spur) Cancelled, Rouleaux Cancelled, Schistocytes Cancelled, Sodium 140, Potassium 4.1, Chloride 109 H, Carbon Dioxide 16.9 L, Anion Gap 14, BUN 35 H, Creatinine 1.63 H, Estim Creat Clear Calc 43.54 L, Est GFR (MDRD) Non-Af 45 L, B UN/Creatinine Ratio 21.7 H, Glucose 116 H, Calcium 8.8, Triglycerides 113, Cholesterol 129, LDL Cholesterol, Calc 66, VLDL Cholesterol 23, HDL Cholesterol 40, Cholesterol/HDL Ratio 3.19, TSH 1.050 06/17/24 06:26: POC Glucose 141 H 06/17/24 06:39: WBC 6.0, RBC 4.54 L, Hgb 14.5, Hct 43.8, MCV 96.5 H, MCH 31.9, MCHC 33.1, RDW Std Deviation 50.0 H, RDW Coeff of Jae 14.0, Plt Count 143 L, MPV 10.7, Immature Gran % (Auto) 0.300, Neut % (Auto) 64.9, Lymph % (Auto) 20.2, M graz[place] % (Auto) 10.4 H, Eos % (Auto) 3.7, Baso % (Auto) 0.5, Absolute Neuts (auto) 3.9, Absolute Lymphs (auto) 1.21, Nucleated RBC % 0 06/17/24 11:57: POC Glucose 290 H D/C Instructions Discharge Diet: Low fat / Low cholesterol DC O2, CPAP, BIPAP Needs Home O2 Discharge instructions: No Meaningful Use Info Meaningful Use Meaningful Use Diagnoses (Choose all that apply): None applicable Ischemic Stroke Statin Dosing Therapy Reference: STATIN DOSE THERAPY REFERENCE: * Patients > 75 years receive moderate or high dose statin therapy. * Patients 75 years or YOUNGER should receive HIGH intensity statin dose unless contraindicated. You will be required to document reason for non-treatment if statin daily dose does not meet guidelines. HIGH DOSE STATIN THERAPY DAILY Atorvastatin > than or = to 40 mg Rosuvastatin > than or = to 20 mg Amlodipine + Atorvastatin > than or = to 2.5/40 mg Ezetimibe + Simvastatin 10/80 mg Simvastatin 80mg Discharge Plan Admission Admit Date/Time: 06/16/24 18:38 Primary Reason for Your Visit: chest pain Attending Provider: Gallo Vu Primary Care Provider: Saad Alamo Consulting Providers: Lisa Castorena Discharge Orders/Prescriptions Prescriptions: Continued atorvastatin 40 mg tablet 40 mg PO QHS aspirin [Adult Aspirin Regimen] 81 mg tablet,delayed release (DR/EC) 81 mg PO DAILY hydrocodone-acetaminophen 5-325 mg tablet 1 tab PO BID PRN (Reason: pain) Jardiance 10 mg tablet 10 mg PO DAILY nitroglycerin 0.4 mg tablet, sublingual 0.4 mg sublingual Q5-15M PRN (Reason: chest pain) carvedilol [Coreg] 25 mg tablet 25 mg PO BID Qty: 180 3RF Rx Instructions: must administer with a meal/food hydralazine 25 mg tablet 25 mg PO TID Qty: 270 3RF amlodipine 2.5 mg tablet 2.5 mg PO DAILY Qty: 30 11RF sacubitril-valsartan [Entresto] 49-51 mg tablet 1 tab PO BID Qty: 180 3RF metformin 500 mg tablet 1,000 mg PO BID torsemide 10 mg tablet 10 mg PO DAILY potassium chloride 10 mEq capsule, extended release 10 meq PO QODAY Referrals / Follow Up: Saad Alamo MD [Primary Care Provider] - Within 2 Weeks Disposition Disposition (needs filled in before D/C Order can be placed): Home, Self Care Charges/Coding Visit Charges Inpatient E&M: 18465 Disch Hosp
== END 2024-06-17 13:10 | disposition home or self-care (01) ==
LOC: ED 18:00 → PCU 18:59
PROVIDERS: Admitting Provider Internal Medicine; Emergency Provider Emergency Medicine; PCP Family Medicine; Referring Provider Emergency Medicine
DX: R07.9 Chest pain, unspecified (principal); I50.9 Heart failure, unspecified; I13.0 Hypertensive heart and chronic kidney disease with heart failure and stage 1 through stage 4 chronic kidney disease, or unspecified chronic kidney disease; E11.22 Type 2 diabetes mellitus with diabetic chronic kidney disease; N18.32 Chronic kidney disease, stage 3b; Z79.82 Long term (current) use of aspirin; Z87.891 Personal history of nicotine dependence; I25.10 Atherosclerotic heart disease of native coronary artery without angina pectoris; M54.2 Cervicalgia; R00.2 Palpitations; Z82.49 Family history of ischemic heart disease and other diseases of the circulatory system; E78.5 Hyperlipidemia, unspecified; G89.29 Other chronic pain; Z79.84 Long term (current) use of oral hypoglycemic drugs; Z83.3 Family history of diabetes mellitus; R06.00 Dyspnea, unspecified; R31.9 Hematuria, unspecified; Z95.1 Presence of aortocoronary bypass graft; Z85.46 Personal history of malignant neoplasm of prostate
CPT/HCPCS: 36415; 71046; 78452; 80048; 80061; 82962; 84443; 84484; 85025; 85610; 93005; 93017; 93306; 96372; 99221; 99285; A9500; A4216; G0378; J2785

== ENCOUNTER → 2024-12-13 | Outpatient (CLI) | payer MEDICARE, SELFPAY ==
[2024-12-13 16:56] LABS: Barbiturate Urine NEGATIVE (< 200 ng/mL); Benzodiazepine Urine NEGATIVE (< 200 ng/mL); PCP Urine NEGATIVE (< 25 ng/mL); THC Urine PRESUMPTIVE POSITIVE (< 50 ng/mL)
== END | disposition home or self-care (01) ==
LOC: LAB 16:07
PROVIDERS: PCP Family Medicine; Referring Provider Anesthesiology Pain Medicine; Visit Provider Anesthesiology Pain Medicine
DX: F11.20 Opioid dependence, uncomplicated (principal)
CPT/HCPCS: 80307